=== PATIENT | male | born 1975 | race Two or more races ===

== ENCOUNTER 2024-03-19 08:59 | Emergency (ER) | payer BC ==
[~2024-03-19] VITALS: Ht 162.6 cm; Wt 76.3 kg
[2024-03-19 10:38] LABS: Urine Bacteria None Seen /hpf (None Seen)
[2024-03-19 10:39] LABS: Basophils # (auto) 0.1 10 ^3/uL (0-0.2); Basophils % (auto) 0.7 % (0.0-2.0); Eosinophils # (auto) 0.9 10 ^3/uL (0-0.8); Eosinophils % (auto) 8.7 % (0.0-7.0); Hematocrit 48.3 % (41.0-53.0); Hemoglobin 16.5 g/dL (13.5-17.5); Lymphocytes # (auto) 1.5 10 ^3/uL (0.4-5.4); Lymphocytes % (auto) 15.1 % (10.0-50.0); Mean Corpuscular Hgb Conc. 34.2 g/dL (32.0-36.0); Mean Corpuscular Volume 90.8 fL (80.0-100.0); Monocytes % (auto) 9.5 % (0.0-12.0); Neutrophils # (auto) 6.6 10 ^3/uL (1.6-8.6); Nucleated Red Blood Cells % 0.1 %; Platelet Count (auto) 321 10^3/uL (140-450); Red Blood Cells 5.32 10^6/uL (4.5-5.90); White Blood Cell 10.1 10^3/uL (4.4-10.8)
--- NOTE | 2024-03-19 10:56 | ED.PDOC ---
History of Present Illness HPI Comments 48M presents to the ER w/ no prior Hx associated to the c/c of urinary problems. Pt reports on having a "bladder problem" and has a burning sensation and pain for the past 2 days during urination. Pt notes of also having lower ABD pain and that this is the first time of these symptoms. Social Hx of occasional alcohol use, but denies tobacco and substance use. Denies chills, fever, N/V/D, SOB, Back pain, CP or other associated symptoms, modifiers or recent injuries or sick contact at this time. Chief Complaint: Urinary Time Seen by MD: 09:35 Primary Care Provider: none Reviewed Notes: Nurses Notes, Medications, Allergies Allergies: Coded Allergies: NO KNOWN ALLERGIES (Unverified , 03/19/24) Home Meds Active Scripts Tamsulosin Hcl (Flomax) 0.4 Mg Cap, 1 CAP PO DAILY, #90 CAP 3 Refills Prov:ARUN FRANCE MD 03/19/24 Information Source: Patient Mode of Arrival: Ambulatory Severity: Moderate Timing: Days Duration: Since onset, Days Prehospital treatment: None Past Medical History PAST MEDICAL HISTORY: Denies Surgical History: Denies all surgeries Family History Family History: Reviewed,noncontributory to illness, Unknown Social History Smoker: Non-Smoker Alcohol: Occasionally Drugs: Denies Drug Use Lives In: Home Constitutional: denies: chills, diaphoresis, fatigue, fever, malaise, sweats, weakness, others EENTM: denies: blurred vision, double vision, ear bleeding, ear discharge, ear drainage, ear pain, ear ringing, eye pain, eye redness, hearing loss, mouth pain, mouth swelling, nasal discharge, nose bleeding, nose congestion, nose pain, photophobia, tearing, throat pain, throat swelling, voice changes, others Respiratory: denies: cough, hemoptysis, orthopnea, SOB at rest, shortness of breath, SOB with excertion, stridor, wheezing, others Cardiovascular: denies: chest pain, dizzy spells, diaphoresis, Dyspnea on exertion, edema, irregular heart beat, left arm pain, lightheadedness, palpitations, PND, syncope, others Gastrointestinal: reports: abdominal pain; denies: abdomen distended, blood streaked bowels, constipated, diarrhea, dysphagia, difficulty swallowing, hematemesis, melena, nausea, poor appetite, poor fluid intake, rectal bleeding, rectal pain, vomiting, others Genitourinary: reports: burning; denies: dysuria, flank pain, frequency, hematuria, incontinence, penile discharge, penile sore, pain, testicle pain, te sticle swelling, urgency, others Neurological: denies: dizziness, fainting, headache, left sided numbness, left sided weakness, numbness, paresthesia, pre-existing deficit, right sided numbness, right sided weakness, seizure, speech problems, tingling, tremors, weakness, others Musculoskeletal: denies: back pain, gout, joint pain, joint swelling, muscle pain, muscle stiffness, neck pain, others Integumetry: denies: bruises, change in color, change in hair/nails, dryness, laceration, lesions, lumps, rash, wounds, others Allergic/Immunocompromised: denies: Difficulty Healing, Frequent Infections, Hives, Itching, others Hematologic/Lymphatic: denies: anemia, blood clots, easy bleeding, easy bruising, swollen glands, others Endocrine: denies: excessive hunger, excessive sweating, excessive thirst, excessive urination, flushing, intolerance to cold, intolerance to heat, unexplained weight gain, unexplained weight loss, others Psychiatric: denies: anxiety, bipolar disorder, depression, hopeless, panic disorder, schizophrenia, sleepless, suicidal, others All Other Systems: Reviewed and Negative Physical Exam Exam Comments Lower ABD pain General Appearance: No Apparent Distress, Normal HEENT: Normal ENT Inspection, Pharynx Normal, TMs Normal Neck: Full Range of Motion, Non-Tender, Normal, Normal Inspection Respiratory: Chest Non-Tender, Lungs Clear, No Accessory Muscle Use, No Respiratory Distress, Normal Breath Sounds Cardiovascular: No Edema, No JVD, No Murmur, No Gallop, Normal Peripheral Pulses, Regular Rate/Rhythm Breast Exam: Deferred Gastrointestinal: No Organomegaly, No Pulsatile Mass, Normal Bowel Sounds, Soft, Tenderness (Lower ABD pain) Genitalia: Deferred Pelvic: Deferred Rectal: Deferred Extremities: No calf tenderness, Normal capillary refill, Normal inspection, Normal range of motion, Non-tender, No pedal edema Musculoskeletal : Apperance: Normal Neurologic: Alert, acls nurse II-XII 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 Was a procedure done?: No Differential Dx Considerations may include: UTI, pyelo, nephrolithiasis, obstructive uropathy, urinary retention, epididymitis, BPH, prostate cancer X-Ray, Labs, Meds, VS Vital Signs Date Time Temp Pulse Resp B/P (MAP) Pulse Ox O2 Delivery O2 Flow Rate FiO2 03/19/24 13:36 98.2 78 16 139/92 (108) 96 98.2 03/19/24 12:06 74 18 96 Room Air 03/19/24 12:06 98.1 74 18 143/91 (108) 96 98.1 03/19/24 09:08 97.9 64 17 150/90 (110) 98 Lab Test 03/19/24 10:04 03/19/24 09:57 Range/Units White Blood Count 10.1 4.4-10.8 10^3/uL Red Blood Count 5.32 4.5-5.90 10^6/uL Hemoglobin 16.5 13.5-17.5 g/dL Hematocrit 48.3 41.0-53.0 % Mean Corpuscular Volume 90.8 80.0-100.0 fL Mean Corpuscular Hemoglobin 31.0 28.0-32.0 pg Mean Corpuscular Hemoglobin Concent 34.2 32.0-36.0 g/dL Red Cell Distribution Width 14.0 11.8-14.3 % Platelet Count 321 140-450 10^3/uL Mean Platelet Volume 8.2 6.9-10.8 fL Neutrophils (%) (Auto) 66.0 37.0-80.0 % Lymphocytes (%) (Auto) 15.1 10.0-50.0 % Monocytes (%) (Auto) 9.5 0.0-12.0 % Eosinophils (%) (Auto) 8.7 H 0.0-7.0 % Basophils (%) (Auto) 0.7 0.0-2.0 % Neutrophils # (Auto) 6.6 1.6-8.6 10 ^3/uL Lymphocytes # (Auto) 1.5 0.4-5.4 10 ^3/uL Monocytes # (Auto) 1.0 0-1.3 10 ^3/uL Eosinophils # (Auto) 0.9 H 0-0.8 10 ^3/uL Basophils # (Auto) 0.1 0-0.2 10 ^3/uL Nucleated Red Blood Cells 0.1 % Sodium Level 140 136-145 mmol/L Potassium Level 3.8 3.5-5.1 mmol/L Chloride Level 105 98-107 mmol/L Carbon Dioxide Level 29 20-31 mmol/L Anion Gap 6 5-15 Blood Urea Nitrogen 14 9-23 mg/dL Creatinine 0.97 0.700-1.30 mg/dL Glomerular Filtration Rate Calc 97 >90 mL/min BUN/Creatinine Ratio 14.4 10.0-20.0 Serum Glucose 92 74-106 mg/dL Calcium Level 10.3 8.7-10.4 mg/dL Urine Color Light-yellow Yellow Urine Clarity Clear Clear Urine pH 5.0 5.0-9.0 Urine Specific [place] 1.015 1.001-1.035 Urine Protein Negative Negative Urine Ketones Negative Negative Urine Blood Trace H Negative /uL Urine Nitrite Negative Negative Urine Bilirubin Negative Negative Urine Urobilinogen Normal Negative mg/dL Urine Leukocyte Esterase Negative Negative /uL Urine RBC 2 0 - 3 /hpf Urine WBC 1 0 - 3 /hpf Urine Squamous Epithelial Cells Few <5 /hpf Urine Bacteria None seen None Seen /hpf Urine Mucus Few None Seen Urine Glucose Normal Normal mg/dL Current Medications Medications (Trade) Dose Ordered Sig/Holly Route Start Time Stop Time Status Last Admin Tamsulosin HCl (Flomax) 0.4 mg ONCE ONCE PO 03/19/24 13:00 03/19/24 13:10 DC 03/19/24 13:19 Time of 1ST Reevaluation: 10:05 Reevaluation 1ST: Unchanged Patient Education/Counseling: Diagnosis, Treatment, Prognosis Family Education/Counseling: No Family Present Departure 1 Departure Time of Disposition: 12:59 Impression: Primary Impression: BPH (benign prostatic hyperplasia) Additional Impressions: Obstructive uropathy Bilateral hydronephrosis Disposition: 01 HOME / SELF CARE / HOMELESS Condition: Stable Additional Instructions: Thank you for visiting our Emergency Room. I wish you full and complete recovery. Please follow the following instructions: 1. Take your medication bottles with you to EVERY DOCTOR'S VISIT (including your primary doctor). 2. Please follow up with your primary doctor in 2-3 days or sooner if symptoms do not improve. 3. Please read all the papers given to you at the time of the discharge so that you understand your condition better. 4. Please note that the emergency room visits are focused and not necessarily comprehensive. Therefore, it is possible that some occult medical conditions may go undiagnosed in the ER. 5. The emergency room visits are not and should not be thought of as replacement for regular visits with your primary doctor. 6. Therefore, it is absolutely critical that you follows up with your primary doctor on regular basis to make sure you receives a complete and comprehensive care. 7. I recommended the you take the hospital discharge papers to your primary care physician and other doctors' offices with you. 8. Go to your nearest emergency room if you think your condition gets worse or you think your condition is an emergency. e-Prescriptions Tamsulosin Hcl (Flomax) 0.4 Mg Cap 1 CAP PO DAILY, #90 CAP 3 Refills Prov: ARUN FRANCE MD 03/19/24 Discharged With: Self Critical Care Note Critical Care Time?: No Stability Stability form required: No I personally scribed for ARUN FRANCE MD ([email or web address]) on 03/19/24 at 10:56. Electronically submitted by Balwinder Donahue ([email or web address]). ARUN FRANCE MD Mar 19, 2024 10:56
[2024-03-19 10:58] LABS: Anion Gap 6 (5-15); Carbon Dioxide 29 mmol/L (20-31); Chloride 105 mmol/L (98-107); Potassium 3.8 mmol/L (3.5-5.1); Sodium 140 mmol/L (136-145)
[2024-03-19 10:59] LABS: Calcium 10.3 mg/dL (8.7-10.4)
[2024-03-19 11:03] LABS: Glucose 92 mg/dL (74-106)
[2024-03-19 11:04] LABS: BUN/Creatinine Ratio 14.4 (10.0-20.0); Blood Urea Nitrogen 14 mg/dL (9-23)
[2024-03-19 11:07] LABS: Urine Blood TRACE /uL (Negative); Urine Clarity Clear (Clear); Urine Color Light-Yellow (Yellow); Urine Mucus FEW (None Seen); Urine Protein, UAD Negative (Negative); Urine Specific Gravity 1.015 (1.001-1.035); Urine Squamous Epithelial Cell FEW /hpf (<5); Urine Urobilinogen Normal (Negative); Urine WBC 1 /hpf (0 - 3)
--- NOTE | 2024-03-19 12:39 | DVH ---
CLINICAL INFORMATION: 48 years old, Male; hematuria. TECHNIQUE: Axial CT images of the abdomen and pelvis were obtained without IV contrast. Coronal and sagittal reformatted images were obtained, reviewed, and stored. Evaluation of the parenchymal organs is limited without IV contrast. Evaluation of the bowel and mesentery is limited without oral contra st. All CT scans at this medical facility are performed using dose modulation techniques as appropria te to a performed exam including the following: Automated exposure control was utilized; adjustment o f the MA and/or KV according to patient size; and use of iterative reconstruction technique. CTDIvol = 10.92 mGy DLP = 582.86 mGy-cm COMPARISON: None FINDINGS: Lung bases: Lung bases are clear. Liver: Small cyst in the right hepatic lobe. Biliary: Gallbladder is distended. Mildly increased density in the gallbladder, may be due to sludge Spleen: Unremarkable. Pancreas: Grossly unremarkable in its noncontrast enhanced appearance. Adrenal glands: Unremarkable. No mass. Kidneys: Moderate bilateral hydronephrosis and hydroureter. No renal or ureteral calculi. No obstruct ing calculus visualized. Aorta/Vascular: Scattered atherosclerotic calcification. No abdominal aortic aneurysm. Retroperitoneum: No mass or lymphadenopathy. Bowel/mesentery: No small bowel obstruction. No free air or free fluid. Appendix is visualized and ap pears unremarkable. Scattered small colonic diverticula without adjacent inflammatory changes to sug gest diverticulitis. Pelvic organs: Markedly enlarged prostate with impression on the bladder base. Bladder: Bladder is moderately to markedly distended. Possible bladder outlet obstruction. Abdominal wall: No mass or hernia. Bones: No acute fracture or suspicious intraosseous lesion. IMPRESSION: 1. Moderate bilateral hydronephrosis and hydroureter with no renal or ureteral calculi. Likely second josh to bladder outlet obstruction from the markedly enlarged prostate. 2. Gallbladder is distended. Possible sludge in the gallbladder. Correlate with clinical findings. I f clinically indicated, ultrasound could be obtained to further evaluate. 3. Additional findings as detailed above.
[2024-03-19] MEDS ORDERED: TAMS-35 PO (13:00)
[2024-03-19] MEDS: TAMSULOSIN HYDROCHLORIDE 0.4 MG CAP PO ONE (13:19)
[2024-03-19 13:36] VITALS: BP 139/92; PULSE 78; RESP 16; TEMP 98.2; O2SAT 96
== END 2024-03-19 13:45 | disposition home or self-care (01) ==
LOC: ER 08:59
DX: N13.8 Other obstructive and reflux uropathy (principal); N40.1 Benign prostatic hyperplasia with lower urinary tract symptoms; N13.30 Unspecified hydronephrosis
CPT/HCPCS: 36415; 74176; 80048; 81001; 85025

== ENCOUNTER 2024-03-20 16:47 | Emergency (ER) | payer BC ==
[~2024-03-20] VITALS: Ht 162.6 cm; Wt 76.8 kg
[~2024-03-20 16:47] MED LIST: TAMS-35 PO
--- NOTE | 2024-03-20 18:53 | ED.PDOC ---
General HPI Comments 48 y.o male presents to the ED for a Solorzano Catheter placement s/p urinary retention x 3 days. Patient reports recently being diagnosed with BPH, prescribed Flomax, states he went to his PCP office today in which he had a bladder and kidney ultrasound done showing >700mL. Patinent is having suprapbuic discomfort rating a 5/10 on the pain scale. Patient was sent by Dr. Rucker for Solorzano catheter placement. Patient denies any nausea, vomiting, dysuria, h ematuria, fever, chills. Chief Complaint: Urinary Time Seen by MD: 18:37 Primary Care Provider: none Reviewed notes: Nurses Notes, Medications, Allergies Allergies: Coded Allergies: NO KNOWN ALLERGIES (Unverified , 03/19/24) Home Meds Active Scripts Tamsulosin Hcl (Flomax) 0.4 Mg Cap, 1 CAP PO DAILY, #90 CAP 3 Refills Prov:ARUN FRANCE MD 03/19/24 Information Source: Patient Mode of Arrival: Ambulatory Severity: Moderate Inability to void: None Timing: Days (3) Duration: Since onset Has not urinated for: Hours Onset: Spontaneous Symptoms: Inability to void History of: BPH Location: Suprapubic Penile discharge: None Modifying factors: None associated signs and symptoms: Abdominal Pain, Inability to Void Past Medical History Past Medical History (Other): BPH Surgical History: Denies all surgeries Family History Family History: Reviewed,noncontributory to illness, Unknown Social History Smoker: Non-Smoker Alcohol: Occasionally Drugs: Denies Drug Use Lives In: Home Constitutional: denies: chills, diaphoresis, fatigue, fever, malaise, sweats, weakness, others EENTM: denies: blurred vision, double vision, ear bleeding, ear discharge, ear drainage, ear pain, ear ringing, eye pain, eye redness, hearing loss, mouth pain, mouth swelling, nasal discharge, nose bleeding, nose congestion, nose pain, photophobia, tearing, throat pain, throat swelling, voice changes, others Respiratory: denies: cough, hemoptysis, orthopnea, SOB at rest, shortness of breath, SOB with excertion, stridor, wheezing, others Cardiovascular: denies: chest pain, dizzy spells, diaphoresis, Dyspnea on exertion, edema, irregular heart beat, left arm pain, lightheadedness, palpitations, PND, syncope, others Gastrointestinal: reports: abdominal pain; denies: abdomen distended, blood streaked bowels, constipated, diarrhea, dysphagia, difficulty swallowing, hematemesis, melena, nausea, poor appetite, poor fluid intake, rectal bleeding, rectal pain, vomiting, others Genitourinary: reports: others (ua retention ); denies: burning, dysuria, flank pain, frequency, hematuria, incontinence, penile discharge, penile sore, pain, testicle pain, testicle swelling, urgency Neurological: denies: dizziness, fainting, headache, left sided numbness, left sided weakness, numbness, paresthesia, pre-existing deficit, right sided numbness, right sided weakness, seizure, speech problems, tingling, tremors, weakness, others Musculoskeletal: denies: back pain, gout, joint pain, joint swelling, muscle pain, muscle stiffness, neck pain, others Integumetry: denies: bruises, change in color, change in hair/nails, dryness, laceration, lesions, lumps, rash, wounds, others Allergic/Immunocompromised: denies: Difficulty Healing, Frequent Infections, Hives, Itching, others Hematologic/Lymphatic: denies: anemia, blood clots, easy bleeding, easy bruising, swollen glands, others Endocrine: denies: excessive hunger, excessive sweating, excessive thirst, excessive urination, flushing, intolerance to cold, intolerance to heat, unexplained weight gain, unexplained weight loss, others Psychiatric: denies: anxiety, bipolar disorder, depression, hopeless, panic disorder, schizophrenia, sleepless, suicidal, others All Other Systems: Reviewed and Negative Physical Exam General Appearance: No Apparent Distress, Normal HEENT: Normal ENT Inspection, Pharynx Normal, TMs Normal Neck: Full Range of Motion, Non-Tender, Normal, Normal Inspection Respiratory: Chest Non-Tender, Lungs Clear, No Accessory Muscle Use, No Respiratory Distress, Normal Breath Sounds Cardiovascular: No Edema, No JVD, No Murmur, No Gallop, Normal Peripheral Pulses, Regular Rate/Rhythm Breast Exam: Deferred Gastrointestinal: Suprapubic, Tenderness Genitalia: Deferred Pelvic: Deferred Rectal: Deferred Extremities: No calf tenderness, Normal capillary refill, Normal inspection, Normal range of motion, Non-tender, No pedal edema Musculoskeletal : Apperance: Normal Neurologic: Alert, roll sheeting cutter II-XII 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 Was a procedure done?: No Differential Diagnosis Kidney stone (Female): N/A Penile/Scrotal: Prostatitis, Urinary Retention Urinary Problem (Male): Bladder Outlet, Bladder Obstruction, Renal Failure, Urinary Retention, Urolithiasis, UTI X-Ray, Labs, Meds, VS Vital Signs Date Time Temp Pulse Resp B/P (MAP) Pulse Ox O2 Delivery O2 Flow Rate FiO2 03/20/24 17:10 98.3 73 17 160/98 (118) 95 Lab Test 03/20/24 17:15 Range/Units Urine Color Pending Urine Clarity Pending Urine pH Pending Urine Specific [place] Pending Urine Protein Pending Urine Ketones Pending Urine Blood Pending Urine Nitrite Pending Urine Bilirubin Pending Urine Urobilinogen Pending Urine Leukocyte Esterase Pending Urine RBC Pending Urine WBC Pending Urine Squamous Epithelial Cells Pending Urine Bacteria Pending Urine Glucose Pending X-Ray, Labs, Meds, VS Comment Imaging: X-rays and CT scans were reviewed and interpreted by this provider, imaging shows no fractures and no pathological disease. Pending radiology review. Laboratory: Labs reviewed and interpreted by this provider. No significant abnormalities noted. Patient has prior medical visits reviewed. Med reconciliation performed Vital signs reviewed Time of 1ST Reevaluation: 18:53 Reevaluation 1ST: Improved Patient Education/Counseling: Diagnosis, Treatment, Prognosis, Need For Follow Up (Follow up with urology next available appointment) Family Education/Counseling: No Family Present Departure 1 Departure Time of Disposition: 20:49 Impression: Primary Impression: BPH (benign prostatic hyperplasia) Disposition: HOME / SELF CARE / HOMELESS Condition: Fair Discharged With: Self Critical Care Note Critical Care Time?: No Stability Stability form required: No I personally scribed for CARMEN ARTHUR ([facility]) on 03/20/24 at 18:53. Electronically submitted by Sania Bernstein ([facility]). CARMEN ARTHUR Mar 20, 2024 18:53
[2024-03-20 20:39] LABS: Urine Bacteria None Seen /hpf (None Seen)
[2024-03-20 20:48] LABS: Urine Blood TRACE /uL (Negative); Urine Clarity Clear (Clear); Urine Color Yellow (Yellow); Urine Mucus FEW (None Seen); Urine Protein, UAD Negative (Negative); Urine Specific Gravity 1.018 (1.001-1.035); Urine Squamous Epithelial Cell None Seen /hpf (<5); Urine Urobilinogen Normal (Negative); Urine WBC 8 /hpf (0 - 3); Urine pH 5.5 (5.0-9.0)
[2024-03-20 21:40] VITALS: BP 138/83; PULSE 60; RESP 18; TEMP 97.9; O2SAT 99
== END 2024-03-20 22:06 | disposition home or self-care (01) ==
LOC: ER 16:48
DX: N40.0 Benign prostatic hyperplasia without lower urinary tract symptoms (principal)
CPT/HCPCS: 51702; 81001

== ENCOUNTER → 2024-03-23 | Outpatient (CLI) | payer BC ==
[2024-03-24 08:06] LABS: PSA Free 0.79 ng/mL; Prostate Specific Antigen 4.4 ng/mL (0.0-4.0)
== END | disposition home or self-care (01) ==
LOC: LAB 09:29
PROVIDERS: ATTEND Urology
DX: N40.1 Benign prostatic hyperplasia with lower urinary tract symptoms (principal)
CPT/HCPCS: 84153; 84154

== ENCOUNTER 2024-04-13 23:35 | Emergency (ER) | payer BC ==
[~2024-04-13] VITALS: Ht 165.1 cm; Wt 76.4 kg
[2024-04-14 01:23] LABS: Basophils # (auto) 0.1 10 ^3/uL (0-0.2); Basophils % (auto) 0.7 % (0.0-2.0); Eosinophils # (auto) 0.4 10 ^3/uL (0-0.8); Eosinophils % (auto) 3.3 % (0.0-7.0); Hematocrit 49.4 % (41.0-53.0); Hemoglobin 16.9 g/dL (13.5-17.5); Lymphocytes # (auto) 2.2 10 ^3/uL (0.4-5.4); Lymphocytes % (auto) 19.8 % (10.0-50.0); Mean Corpuscular Hemoglobin 30.9 pg (28.0-32.0); Mean Corpuscular Hgb Conc. 34.2 g/dL (32.0-36.0); Mean Corpuscular Volume 90.3 fL (80.0-100.0); Monocytes # (auto) 0.6 10 ^3/uL (0-1.3); Monocytes % (auto) 5.6 % (0.0-12.0); Neutrophils # (auto) 7.8 10 ^3/uL (1.6-8.6); Neutrophils % (auto) 70.6 % (37.0-80.0); Nucleated Red Blood Cells % 0.1 %; Platelet Count (auto) 336 10^3/uL (140-450); Red Blood Cells 5.48 10^6/uL (4.5-5.90); Red Cell Distribution Width 13.7 % (11.8-14.3)
--- NOTE | 2024-04-14 01:23 | ED.PDOC ---
General HPI Comments HPI: Poor Historian. 49-year-old male presents to emergency department for recurrent acute urinary retention. Patient had urinary retention on March 23 and had a Solorzano catheter placed at that time in the ED. patient is saw his urologist and got his Solorzano catheter removed earlier today.. Patient went home and started exp eriencing urinary retention again and he states that it is getting worse as far as it discomfort. Denies any other acute symptoms. Past Medical History: Denies any Past Surgical History: Denies any REVIEW OF SYSTEMS: CONSTITUTIONAL: Denies acute: fever, diaphoresis, chills, generalized weakness. HEAD: Denies acute: headache, photophobia Eyes: Denies acute: Double vision, vision loss, eye pain, eye discharge. EARS: Denies acute: tinnitus, hearing loss, ear discharge, ear pain, THROAT: Denies acute: sore throat, swelling, difficulty swallowing , pain with swallowing, change in voice. NECK: Denies acute: neck pain, neck swelling, stiff neck. HEART: Denies acute : chest pain, palpitations, LUNGS: Denies acute: SOB, wheezing, cough, hemoptysis ABDOMEN: Denies acute: Nausea, Vomiting, diarrhea, melena , hematemesis, hematochezia SKIN: Denies acute: rash, redness, lesions, itchiness. EXTREMITIES: Denies acute: calf pain, numbness, tingling, weakness, denies pain in extremity. Denies acute: Low back pain. Neuro: Denies acute: focal neurological deficit, motor or sensory focal neurological deficit, tremors, seizure like activity, confusion, dizziness, change in mental status, loss of bowel or bladder function, cauda equina like symptoms. : Denies acute: dysuria, hematuria, flank pain, increase in urinary frequency. PSYCH: Denies acute: hallucination, suicidal ideation, homicidal ideation. PHYSICAL EXAM: General: no acute distress, awake and alert. Head: normocephalic, atraumatic. Neck: supple, trachea is midline, no swelling. Throat: Normal phonation. Eyes:, no erythema, no purulent discharge, no proptosis, no icterus. Heart: regular rate, regular rhythm, no significant murmur appreciated. Lungs: no apparent respiratory distress, Able to speak in full sentences. No wheezing, no rhonchi, no crackles. No stridors Clear to auscultation bilaterally. Abdomen: Mild suprapubic tender to palpation, non distended, soft, no guarding, no rebound, + bowel sounds. Neuro: Awake, Alert, oriented to name, self, situation, follows commands GCS=15. Speech is normal. Skin: no petechia, no purpura, no cyanosis, non-pale, not jaundice. Lower extremities: --no - Pitting edema no deformity, no focal swelling, no calf TTP. Makes eye contact. moves all four extremities. Face: no apparent facial droop. Ambulating in the ED independently. ED COURSE: Chief Complaint: Urinary Time Seen by MD: 00:56 Primary Care Provider: none Reviewed notes: Nurses Notes, Allergies Allergies: Coded Allergies: NO KNOWN ALLERGIES (Unverified , 03/19/24) Home Meds Active Scripts Cephalexin Monohydrate (Cephalexin) 500 Mg Tab, 1 TAB PO QID for 7 Days, #28 TAB Prov:PABLITO HOOPER DO 04/14/24 Tamsulosin Hcl (Flomax) 0.4 Mg Cap, 1 CAP PO DAILY, #90 CAP 3 Refills Prov:ARUN FRANCE MD 03/19/24 Information Source: Patient Mode of Arrival: Ambulatory Past Medical History Surgical History: Denies all surgeries Family History Family History: Reviewed,noncontributory to illness, Unknown Social History Smoker: Non-Smoker Alcohol: Occasionally Drugs: Denies Drug Use Lives In: Home Was a procedure done? Was a procedure done?: No Differential Diagnosis Kidney stone (Female): N/A Urinary Problem (Male): Bladder Outlet, Bladder Obstruction, Epididymitis, Prostatitis, Plelonephritis, Post op Complications, Renal Failure, Urethritis, Urinary Retention, Urolithiasis, UTI, Other (MALE URINARY PROBLEMSDDX BPH, OBSTRUCTING NEOPLASM, BLADDER PATHOLOGY, OBSTRUCTION STONE. PHYMOSIS/PAPRPHYMOSIS, CAUDA EQUINA SYNDROME, UTI.) X-Ray, Labs, Meds, VS Vital Signs Date Time Temp Pulse Resp B/P (MAP) Pulse Ox O2 Delivery O2 Flow Rate FiO2 04/14/24 00:00 98.5 78 16 163/95 (117) 94 Lab Test 04/14/24 01:12 04/14/24 00:44 Range/Units White Blood Count 11.0 H 4.4-10.8 10^3/uL Red Blood Count 5.48 4.5-5.90 10^6/uL Hemoglobin 16.9 13.5-17.5 g/dL Hematocrit 49.4 41.0-53.0 % Mean Corpuscular Volume 90.3 80.0-100.0 fL Mean Corpuscular Hemoglobin 30.9 28.0-32.0 pg Mean Corpuscular Hemoglobin Concent 34.2 32.0-36.0 g/dL Red Cell Distribution Width 13.7 11.8-14.3 % Platelet Count 336 140-450 10^3/uL Mean Platelet Volume 7.9 6.9-10.8 fL Neutrophils (%) (Auto) 70.6 37.0-80.0 % Lymphocytes (%) (Auto) 19.8 10.0-50.0 % Monocytes (%) (Auto) 5.6 0.0-12.0 % Eosinophils (%) (Auto) 3.3 0.0-7.0 % Basophils (%) (Auto) 0.7 0.0-2.0 % Neutrophils # (Auto) 7.8 1.6-8.6 10 ^3/uL Lymphocytes # (Auto) 2.2 0.4-5.4 10 ^3/uL Monocytes # (Auto) 0.6 0-1.3 10 ^3/uL Eosinophils # (Auto) 0.4 0-0.8 10 ^3/uL Basophils # (Auto) 0.1 0-0.2 10 ^3/uL Nucleated Red Blood Cells 0.1 % Sodium Level 140 136-145 mmol/L Potassium Level 4.5 3.5-5.1 mmol/L Chloride Level 105 98-107 mmol/L Carbon Dioxide Level 28 20-31 mmol/L Anion Gap 7 5-15 Blood Urea Nitrogen 10 9-23 mg/dL Creatinine 0.85 0.700-1.30 mg/dL Glomerular Filtration Rate Calc 107 >90 mL/min BUN/Creatinine Ratio 11.8 10.0-20.0 Serum Glucose 105 74-106 mg/dL Calcium Level 10.2 8.7-10.4 mg/dL Total Bilirubin 0.4 0.2-1.0 mg/dL Aspartate Amino Transferase (AST) 41 H 13-40 U/L Alanine Aminotransferase (ALT) 127 H 7-40 U/L Alkaline Phosphatase 159 H 46-116 U/L Total Protein 7.8 5.7-8.2 g/dL Albumin 4.8 3.2-4.8 g/dL Urine Color Light-yellow Yellow Urine Clarity Clear Clear Urine pH 6.0 5.0-9.0 Urine Specific [place] 1.019 1.001-1.035 Urine Protein Trace H Negative Urine Ketones Negative Negative Urine Blood 2+ H Negative /uL Urine Nitrite 2+ H Negative Urine Bilirubin Negative Negative Urine Urobilinogen Normal Negative mg/dL Urine Leukocyte Esterase 3+ Negative /uL Urine RBC 34 0 - 3 /hpf Urine Microscopic WBC 60 H 0-3 /HPF Urine Squamous Epithelial Cells None seen <5 /hpf Urine Bacteria Few H None Seen /hpf Urine Glucose Normal Normal mg/dL Current Medications Medications (Trade) Dose Ordered Sig/Holly Route Start Time Stop Time Status Last Admin Lidocaine HCl (Lidocaine HCl Jelly) 5 ml ONCE ONCE TOP 04/14/24 01:00 04/14/24 01:02 DC 04/14/24 01:30 Time of 1ST Reevaluation: 02:50 Reevaluation 1ST: Resolved Patient Education/Counseling: Diagnosis, Treatment Family Education/Counseling: Other Comments Patient presented with the above HPI.---acute urinary retention---workup was initiated. patient was found with the above mentioned diagnosis. the following medications were ordered: please refer to order lists of meds and tests obtained by myself Dr. Hooper. Patient ED course and VS have been stabilized. Patient has been reassessed in the ED and remained in a stable condition. Pertinent incidental findings were discussed with the patient and/or family. Patient/family voices understanding and is agreeable with plan. Patient has been observed in the ED adequate length of time to insure improvement/stability. Escalation of care considered: Consideration of escalation to observation or admission Labs were obtained and urinalysis which shows UTI. Patient was given IV antibiotics. Solorzano catheter was placed and at least 500 cc of urine were removed. Patient will go home with a leg bag. Patient has a urologist established already. Patient was DISCHARGED home in a stable condition. All the reports of any imaging studies that were ordered by myself were reviewed by myself. Departure 1 Departure Time of Disposition: 02:49 Impression: Primary Impression: Acute urinary retention Additional Impressions: UTI (urinary tract infection) Solorzano catheter in place Disposition: HOME / SELF CARE / HOMELESS Condition: Stable Additional Instructions: Additional discharge instructions: You MUST follow-up with your primary care/family doctor in 1 to 2 days. If you are unable to see your primary care/family doctor, please return to our emergency room for re-assessment and re-evaluation in 1 to 2 days. Return to the emergency room here in our facility or to the nearest ER [facility] if your symptoms change or worsen. CONSULTATIONS: you MUST Follow-up for consultation as soon as possible with: urologrob in 1-2 days. Please call for appointment. You MUST call the consultants office yourself to make an appointment. You may need to arrange that through your insurance and/or your primary/family doctor. If you are unable to see the clinical documentation consultant in 1 to 2 days, you must return to our emergency room (or any other ER of your choice) for re-assessment and re- evaluation. Adequate fluid hydration. e-Prescriptions Cephalexin Monohydrate (Cephalexin) 500 Mg Tab 1 TAB PO QID for 7 Days, #28 TAB Prov: PABLITO HOOPER DO 04/14/24 Discharged With: Self Critical Care Note Critical Care Time?: No PABLITO HOOPER DO Apr 14, 2024 01:23
[2024-04-14] MEDS: LIDOCAINE HCL 2% TOP JELLY 5ML TOP ONE (01:26)
[2024-04-14] MEDS: LIDOCAINE 2% TOPICAL JELLY 5 ML URJT TOP ONE (01:30)
[2024-04-14 01:41] LABS: Anion Gap 7 (5-15); BUN/Creatinine Ratio 11.8 (10.0-20.0); Blood Urea Nitrogen 10 mg/dL (9-23); Calcium 10.2 mg/dL (8.7-10.4); Carbon Dioxide 28 mmol/L (20-31); Chloride 105 mmol/L (98-107); Glucose 105 mg/dL (74-106); Potassium 4.5 mmol/L (3.5-5.1); Sodium 140 mmol/L (136-145)
[2024-04-14 01:42] LABS: Bilirubin, Total 0.4 mg/dL (0.2-1.0); Total Protein 7.8 g/dL (5.7-8.2)
[2024-04-14 01:46] LABS: Alanine Aminotransferase 127 U/L (7-40); Alkaline Phosphatase 159 U/L (46-116); Aspartate Aminotransferase 41 U/L (13-40)
[2024-04-14 01:47] LABS: Albumin 4.8 g/dL (3.2-4.8)
[2024-04-14 01:56] LABS: Urine Bacteria FEW /hpf (None Seen); Urine Blood 2+ /uL (Negative); Urine Clarity Clear (Clear); Urine Color Light-Yellow (Yellow); Urine Protein, UAD TRACE (Negative); Urine Specific Gravity 1.019 (1.001-1.035); Urine Squamous Epithelial Cell None Seen /hpf (<5); Urine Urobilinogen Normal (Negative); Urine WBC 60 /HPF (0-3)
[2024-04-14] MEDS ORDERED: CEPH500T PO (02:51)
[2024-04-14 03:45] VITALS: BP 142/80; PULSE 78; RESP 20; TEMP 98.7; O2SAT 97
[2024-04-14] MEDS: cefTRIAXone 1GM/50ML D5W 50 ML IV ONE (04:00)
== END 2024-04-14 04:30 | disposition home or self-care (01) ==
LOC: ER 23:35
DX: N39.0 Urinary tract infection, site not specified (principal); R33.9 Retention of urine, unspecified
CPT/HCPCS: 36415; 51702; 80053; 81001; 85025; 96365; 99284; J0696

== ENCOUNTER 2024-04-16 18:32 | Emergency (ER) | payer BC ==
[~2024-04-16] VITALS: Ht 165.1 cm; Wt 76.9 kg
[~2024-04-16 18:32] MED LIST changes: +CEPH500T PO
[2024-04-16 19:10] LABS: Urine Bacteria None Seen /hpf (None Seen)
[2024-04-16 19:16] LABS: Urine Blood 3+ /uL (Negative); Urine Clarity Ex.Turbid (Clear); Urine Color Red (Yellow); Urine Protein, UAD 1+ (Negative); Urine Specific Gravity 1.025 (1.001-1.035); Urine Squamous Epithelial Cell None Seen /hpf (<5); Urine Urobilinogen Normal (Negative); Urine WBC 626 /HPF (0-3); Urine WBC Clumps PRESENT /hpf (None Seen); Urine pH 5.5 (5.0-9.0)
[2024-04-16 20:43] VITALS: BP 146/97; PULSE 82; RESP 18; TEMP 98; O2SAT 97
--- NOTE | 2024-04-16 21:10 | ED.PDOC ---
General HPI Comments THIS IS A 49-YEAR-OLD MALE PRESENTS TO THE ED CHIEF COMPLAINT GROSS BLOOD IN URINE. PATIENT STATES SYMPTOMS HAVE BEEN GOING ON FOR 1 MONTH HOWEVER HE FOLLOW UP WITH HIS UROLOGIST AND WAS PRESCRIBED CIPRO 500 MG TWICE DAILY AND FLOMAX PROXIMALLY 2 DAYS AGO PATIENT STATES 3 DAYS AGO THE SYMPTOMS FOR WORSE URINE WAS RED NOW HE STATES SOME IMPROVEMENT URINE IS BROWN. HE HAS BEEN ON CIPRO X2 DAYS WITH IMPROVING. DENIES FEVER, CHILLS, NAUSEA, VOMITING, BURNING WITH URINATION, CHEST PAIN OR SHORTNESS BREATH Chief Complaint: Urinary Time Seen by MD: 18:59 Primary Care Provider: none Reviewed notes: Nurses Notes, Medications, Allergies Allergies: Coded Allergies: NO KNOWN ALLERGIES (Unverified , 03/19/24) Home Meds Active Scripts Cephalexin Monohydrate (Cephalexin) 500 Mg Tab, 1 TAB PO QID for 7 Days, #28 TAB Prov:PABLITO LAUREANO DO 04/14/24 Tamsulosin Hcl (Flomax) 0.4 Mg Cap, 1 CAP PO DAILY, #90 CAP 3 Refills Prov:ARUN FRANCE MD 03/19/24 Information Source: Patient Mode of Arrival: Ambulatory Past Medical History PAST MEDICAL HISTORY: Denies Surgical History: Denies all surgeries Family History Family History: Reviewed,noncontributory to illness, Unknown Social History Smoker: Non-Smoker Alcohol: Occasionally Drugs: Denies Drug Use Lives In: Home Constitutional: denies: chills, diaphoresis, fatigue, fever, malaise, sweats, weakness, others EENTM: denies: blurred vision, double vision, ear bleeding, ear discharge, ear drainage, ear pain, ear ringing, eye pain, eye redness, hearing loss, mouth pain, mouth swelling, nasal discharge, nose bleeding, nose congestion, nose pain, photophobia, tearing, throat pain, throat swelling, voice changes, others Respiratory: denies: cough, hemoptysis, orthopnea, SOB at rest, shortness of breath, SOB with excertion, stridor, wheezing, others Cardiovascular: denies: chest pain, dizzy spells, diaphoresis, Dyspnea on exer tion, edema, irregular heart beat, left arm pain, lightheadedness, palpitations, PND, syncope, others Gastrointestinal: denies: abdomen distended, abdominal pain, blood streaked bowels, constipated, diarrhea, dysphagia, difficulty swallowing, hematemesis, melena, nausea, poor appetite, poor fluid intake, rectal bleeding, rectal pain, vomiting, others Genitourinary: reports: hematuria; denies: burning, dysuria, flank pain, frequency, incontinence, penile discharge, penile sore, pain, testicle pain, testicle swelling, urgency, others Neurological: denies: dizziness, fainting, headache, left sided numbness, left sided weakness, numbness, paresthesia, pre-existing deficit, right sided numbness, right sided weakness, seizure, speech problems, tingling, tremors, weakness, others Musculoskeletal: denies: back pain, gout, joint pain, joint swelling, muscle pain, muscle stiffness, neck pain, others Integumetry: denies: bruises, change in color, change in hair/nails, dryness, laceration, lesions, lumps, rash, wounds, others Allergic/Immunocompromised: denies: Difficulty Healing, Frequent Infections, Hives, Itching, others Hematologic/Lymphatic: denies: anemia, blood clots, easy bleeding, easy bruising, swollen glands, others Endocrine: denies: excessive hunger, excessive sweating, excessive thirst, excessive urination, flushing, intolerance to cold, intolerance to heat, unexplained weight gain, unexplained weight loss, others Psychiatric: denies: anxiety, bipolar disorder, depression, hopeless, panic disorder, schizophrenia, sleepless, suicidal, others Physical Exam General Appearance: No Apparent Distress, Normal HEENT: Normal ENT Inspection, Pharynx Normal, TMs Normal Neck: Full Range of Motion, Non-Tender Respiratory: Lungs Clear, No Respiratory Distress, Normal Breath Sounds Cardiovascular: No Edema, No JVD, No Murmur, No Gallop, Normal Peripheral Pulses, Regular Rate/Rhythm Breast Exam: Deferred Gastrointestinal: No Organomegaly, Non Tender, No Pulsatile Mass, Normal Bowel Sounds, Soft Genitalia: Other (PIKE BAG WITH BROWN COLORED URINE WITHOUT NOTED CLOTS SPLASHED TUBE CATHETER FLUSHED PATENT) Pelvic: Deferred Rectal: Deferred Extremities: No calf tenderness, Normal capillary refill, Normal inspection, Normal range of motion, Non-tender, No pedal edema Musculoskeletal : Apperance: Normal Neurologic: Alert, 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 Was a procedure done?: No Differential Diagnosis Kidney stone (Female): Urinary obstruction, Urolithiasis Kidney stone (Male): Pyelonephritis, Urolithiasis Urinary Problem (Male): Prostatitis, Urinary Retention, UTI X-Ray, Labs, Meds, VS Vital Signs Date Time Temp Pulse Resp B/P (MAP) Pulse Ox O2 Delivery O2 Flow Rate FiO2 04/16/24 20:43 82 18 97 Room Air 04/16/24 20:43 98.0 82 18 146/97 (113) 97 98.0 04/16/24 18:45 98.2 86 16 167/102 (123) 96 Lab Test 04/16/24 19:04 Range/Units Urine Color Red H Yellow Urine Clarity Ex.turbid Clear Urine pH 5.5 5.0-9.0 Urine Specific [place] 1.025 1.001-1.035 Urine Protein 1+ H Negative Urine Ketones Negative Negative Urine Blood 3+ H Negative /uL Urine Nitrite Negative Negative Urine Bilirubin Negative Negative Urine Urobilinogen Normal Negative mg/dL Urine Leukocyte Esterase 2+ Negative /uL Urine RBC 5588 0 - 3 /hpf Urine WBC Clumps Present None Seen /hpf Urine Microscopic WBC 626 H 0-3 /HPF Urine Squamous Epithelial Cells None seen <5 /hpf Urine Bacteria None seen None Seen /hpf Urine Glucose Normal Normal mg/dL X-Ray, Labs, Meds, VS Comment ADVISED PATIENT TO CONTINUE THE CIPRO IN THE FLOMAX PRESCRIBED PATIENT STATES HE HAS A APPOINTMENT WITH THE UROLOGIST TOMORROW ON WEDNESDAY. ER RETURN PRECAUTIONS GIVEN PATIENT INDICATES UNDERSTANDING AGREES WITH DISCHARGE PLAN OF CARE. Time of 1ST Reevaluation: 21:00 Reevaluation 1ST: Improved Patient Education/Counseling: Diagnosis, Treatment, Prognosis, Need For Follow Up Family Education/Counseling: No Family Present Departure 1 Departure Time of Disposition: 21:09 Impression: Primary Impression: Prostatitis, acute Additional Impressions: Hematuria Qualified Codes: R31.0 - Gross hematuria Pike catheter in place Disposition: HOME / SELF CARE / HOMELESS Condition: Stable Discharged With: Relative (Father) Critical Care Note Critical Care Time?: No Stability Stability form required: GIOVANY Loya Apr 16, 2024 21:10
== END 2024-04-16 21:23 | disposition home or self-care (01) ==
LOC: ER 18:32
DX: N41.0 Acute prostatitis (principal); R31.0 Gross hematuria
CPT/HCPCS: 81001

== ENCOUNTER → 2024-04-17 | Outpatient (CLI) | payer BC | END | disposition home or self-care (01) | LOC: LAB 12:32 | PROVIDERS: ATTEND Internal Medicine | DX: R31.9 Hematuria, unspecified (principal); N40.0 Benign prostatic hyperplasia without lower urinary tract symptoms | CPT/HCPCS: 87086 ==

== ENCOUNTER 2024-05-01 22:18 | Emergency (ER) | payer BC ==
[~2024-05-01] VITALS: Ht 165.1 cm; Wt 77.0 kg
--- NOTE | 2024-05-02 00:58 | ED.PDOC ---
General HPI Comments 49 YEAR OLD MALE PRESENTS TO ER WITH PIKE CATHETER COMPLAINT X1 DAY. PATIENT WITH PMH OF BPH REPORTS THAT HE HAD A PIKE CATHETER PLACED ON 04/19/23 AFTER HAVING A CYSTOSCOPY PROCEDURE BY HIS UROLOGIST DR. TUBBS AND STATES X1 DAY HAS BEEN EXPERIENCING LEAKAGE AND 4/1O BURNING PAIN AT PIKE CATHETER INSERTION SITE. PRESENTS TO ER AMBULATORY ON ARRIVAL, WITH STEADY GAIT, IN NO DISTRESS AND STATES HE WAS FOLLOWING UP WITH DR. TUBBS IN TWO DAYS. DENIES FEVER, BODY ACHES, CHILLS, NAUSEA/VOMITING, ABDOMINAL/PELVIC PAIN, SKIN CHANGES, HEMATURIA/FURTHER CHANGES IN URINATION OR ANY FURTHER SYMPTOMS/COMPLAINTS Chief Complaint: Penile Problem Time Seen by MD: 23:05 Primary Care Provider: UNKNOWN Reviewed notes: Nurses Notes, Medications, Allergies Allergies: Coded Allergies: NO KNOWN ALLERGIES (Unverified , 03/19/24) Home Meds Active Scripts Cephalexin Monohydrate (Cephalexin) 500 Mg Tab, 1 TAB PO QID for 7 Days, #28 TAB Prov:PABLITO LAUREANO DO 04/14/24 Tamsulosin Hcl (Flomax) 0.4 Mg Cap, 1 CAP PO DAILY, #90 CAP 3 Refills Prov:ARUN FRANCE MD 03/19/24 Information Source: Patient Mode of Arrival: Ambulatory Past Medical History Past Medical History (Other): BPH Surgical History (Other): CYSTOSCOPY-04/19/2024 Family History Family History: Unknown Social History Smoker: Non-Smoker Alcohol: Occasionally Drugs: Denies Drug Use Lives In: Home Constitutional: denies: chills, diaphoresis, fatigue, fever, malaise, sweats, weakness, others EENTM: denies: blurred vision, double vision, ear bleeding, ear discharge, ear drainage, ear pain, ear ringing, eye pain, eye redness, hearing loss, mouth pain, mouth swelling, nasal discharge, nose bleeding, nose congestion, nose pain, photophobia, tearing, throat pain, throat swelling, voice changes, others Respiratory: denies: cough, hemoptysis, orthopnea, SOB at rest, shortness of breath, SOB with excertion, stridor, wheezing, others Cardiovascular: denies: chest pain, dizzy spells, diaphoresis, Dyspnea on exertion, edema, irregular heart beat, left arm pain, lightheadedness, palpitations, PND, syncope, others Gastrointestinal: denies: abdomen distended, abdominal pain, blood streaked bowels, constipated, diarrhea, dysphagia, difficulty swallowing, hematemesis, melena, nausea, poor appetite, poor fluid intake, rectal bleeding, rectal pain, vomiting, others Genitourinary: reports: others ( STATED IN HPI) Neurological: denies: dizziness, fainting, headache, left sided numbness, left sided weakness, numbness, paresthesia, pre-existing deficit, right sided numbness, right sided weakness, seizure, speech problems, tingling, tremors, weakness, others Musculoskeletal: denies: back pain, gout, joint pain, joint swelling, muscle pain, muscle stiffness, neck pain, others Integumetry: denies: bruises, change in color, change in hair/nails, dryness, laceration, lesions, lumps, rash, wounds, others Allergic/Immunocompromised: denies: Difficulty Healing, Frequent Infections, Hives, Itching, others Hematologic/Lymphatic: denies: anemia, blood clots, easy bleeding, easy bruising, swollen glands, others Endocrine: denies: excessive hunger, excessive sweating, excessive thirst, excessive urination, flushing, intolerance to cold, intolerance to heat, unex plained weight gain, unexplained weight loss, others Psychiatric: denies: anxiety, bipolar disorder, depression, hopeless, panic disorder, schizophrenia, sleepless, suicidal, others Physical Exam General Appearance: No Apparent Distress HEENT: PERRL/EOMI Neck: Full Range of Motion, Non-Tender, Normal Respiratory: Chest Non-Tender, Lungs Clear, No Accessory Muscle Use, No Respiratory Distress, Normal Breath Sounds Cardiovascular: No Murmur, No Gallop, Regular Rate/Rhythm Breast Exam: Deferred Gastrointestinal: NOT DONE Genitalia: Other (PIKE CATHETER IN PLACE. NO LEAKAGE APPRECIATED. NO SKIN CHANGES NOTED. YELLOW URINE NOTED WITHOUT ANY HEMATURIA APPRECIATED) Pelvic: Deferred Rectal: Deferred Extremities: Normal capillary refill, Normal range of motion Neurologic: Alert, No Motor Deficits, Normal Affect, Normal Mood, No Sensory Deficits Cerebellar Function: Normal Reflexes: Normal Skin: Dry, Normal Color, Warm Peripheral Pulses: 2+ Radial (R), 2+ Radial (L), 2+ Brachial (R), 2+ Brachial (L) Lymphatic: No Adenopathy Was a procedure done? Was a procedure done?: No Sedation Sedation?: No Differential Diagnosis Kidney stone (Female): N/A Penile/Scrotal: Prostatitis, UTI, Urinary Retention X-Ray, Labs, Meds, VS Vital Signs Date Time Temp Pulse Resp B/P (MAP) Pulse Ox O2 Delivery O2 Flow Rate FiO2 05/01/24 22:35 98.1 85 14 145/96 (112) 95 Lab Test 05/02/24 00:35 Range/Units Urine Color Colorless Yellow Urine Clarity Turbid H Clear Urine pH 6.5 5.0-9.0 Urine Specific [place] 1.031 1.001-1.035 Urine Protein 1+ H Negative Urine Ketones Negative Negative Urine Blood 3+ H Negative /uL Urine Nitrite 2+ H Negative Urine Bilirubin Negative Negative Urine Urobilinogen Normal Negative mg/dL Urine Leukocyte Esterase 3+ Negative /uL Urine RBC 353 0 - 3 /hpf Urine Microscopic WBC 419 H 0-3 /HPF Urine Squamous Epithelial Cells None seen <5 /hpf Urine Bacteria None seen None Seen /hpf Urine Mucus Few None Seen Urine Glucose Normal Normal mg/dL Urinalysis reviewed-urine leukocyte esterase 3+, urine nitrites 2+, urine blood 3+ Rocephin 1 g IM ordered Pike catheter balloon was reinflated at bedside by nurse, no leakage from pike catheter was noted and patient reported improvement in symptoms/in no distress prior to discharge Advised to follow up with PCP and urologist in 1-2 days Patient verbalized understanding and agreeable with current plan of care Advised to return to ER immediately if symptoms worsen Time of 1ST Reevaluation: 01:22 Reevaluation 1ST: N/A Time of 2ND Reevaluation: 01:58 Patient Education/Counseling: Diagnosis, Treatment, Prognosis, Need For Follow Up Family Education/Counseling: No Family Present Departure 1 Departure Time of Disposition: 02:00 Impression: Primary Impression: UTI (urinary tract infection) Qualified Codes: N30.01 - Acute cystitis with hematuria Additional Impressions: Encounter for evaluation of Pike catheter History of BPH Disposition: 01 HOME / SELF CARE / HOMELESS Condition: Stable e-Prescriptions Sulfamethoxazole W/Trimethopri (Bactrim Ds Tablet) 1 Tab Tb 1 TAB PO BID for 7 Days, #14 TAB 0 Refills Prov: RACHEL CHRISTENSEN 05/02/24 Critical Care Note Critical Care Time?: No Stability Stability form required: No Heart Score Heart Score: Heart Score Response (Comments) Value History N/A 0 EKG N/A 0 Age N/A 0 Risk Factors N/A 0 Troponin N/A 0 Total 0 RACHEL CHRISTENSEN May 02, 2024 00:58
[2024-05-02 01:32] LABS: Urine Bacteria None Seen /hpf (None Seen)
[2024-05-02 01:51] LABS: Urine Blood 3+ /uL (Negative); Urine Clarity Turbid (Clear); Urine Color Colorless (Yellow); Urine Mucus FEW (None Seen); Urine Protein, UAD 1+ (Negative); Urine Specific Gravity 1.031 (1.001-1.035); Urine Squamous Epithelial Cell None Seen /hpf (<5); Urine Urobilinogen Normal (Negative); Urine WBC 419 /HPF (0-3); Urine pH 6.5 (5.0-9.0)
[2024-05-02] MEDS ORDERED: BACDST PO (01:58)
[2024-05-02] MEDS: cefTRIAXone SOD 1,000 MG VL IM ONE (02:05)
[2024-05-02 02:14] VITALS: BP 145/96; PULSE 85; RESP 14; TEMP 98.1; O2SAT 95
== END 2024-05-02 02:20 | disposition home or self-care (01) ==
LOC: ER 22:18
DX: T83.84XA Pain due to genitourinary prosthetic devices, implants and grafts, initial encounter (principal); N39.0 Urinary tract infection, site not specified; N40.0 Benign prostatic hyperplasia without lower urinary tract symptoms; Y92.89 Other specified places as the place of occurrence of the external cause
CPT/HCPCS: 81001; 96372; 99283; J0696

== ENCOUNTER 2024-05-08 19:32 | Emergency (ER) | payer BC ==
[~2024-05-08] VITALS: Ht 165.1 cm; Wt 77.1 kg
[~2024-05-08 19:32] MED LIST changes: +BACDST PO
[2024-05-08 20:13] VITALS: BP 173/98; PULSE 88; RESP 16; O2SAT 94
--- NOTE | 2024-05-08 23:12 | ED.PDOC ---
General HPI Comments 49 YEAR OLD MALE PRESENTS TO ER WITH PIKE CATHETER COMPLAINT X1 DAY. PATIENT WITH PMH OF BPH REPORTS THAT HE HAD A PIKE CATHETER PLACED ON 04/19/23 AFTER HAVING A CYSTOSCOPY PROCEDURE BY HIS UROLOGIST DR. TUBBS AND STATES TODAY AT 6:30 P.M. HE FELT HIS PIKE "CATHETER BALLOON POP" WHILE HE WAS TAKING A SHOWER WITH ASSOCIATED DRAINAGE FROM HIS PIKE CATHETER. DENIES ANY CURRENT PAIN AND STATES HE STATES HE CURRENTLY IS TAKING CIPROFLOXACIN ANTIBIOTICS FOR A UTI. PRESENTS TO ER AMBULATORY ON ARRIVAL, WITH STEADY GAIT, IN NO DISTRESS AND STATES HE WAS FOLLOWING UP WITH DR. TUBBS TOMORROW. DENIES FEVER, BODY ACHES, CHILLS, NAUSEA/VOMITING, ABDOMINAL/PELVIC PAIN, SKIN CHANGES, TRAUMA/INJURY, WILBUR TURIA/FURTHER CHANGES IN URINATION OR ANY FURTHER SYMPTOMS/COMPLAINTS Chief Complaint: Tube Replacement Time Seen by MD: 20:29 Primary Care Provider: UNKNOWN Reviewed notes: Nurses Notes, Medications, Allergies Allergies: Coded Allergies: NO KNOWN ALLERGIES (Unverified , 03/19/24) Home Meds Active Scripts Sulfamethoxazole W/Trimethopri (Bactrim Ds Tablet) 1 Tab Tb, 1 TAB PO BID for 7 Days, #14 TAB 0 Refills Prov:RACHEL CHRISTENSEN 05/02/24 Cephalexin Monohydrate (Cephalexin) 500 Mg Tab, 1 TAB PO QID for 7 Days, #28 TAB Prov:PABLITO LAUREANO DO 04/14/24 Tamsulosin Hcl (Flomax) 0.4 Mg Cap, 1 CAP PO DAILY, #90 CAP 3 Refills Prov:ARUN FRANCE MD 03/19/24 Information Source: Patient Mode of Arrival: Ambulatory Past Medical History Past Medical History (Other): BPH Surgical History: Denies all surgeries Family History Family History: Unknown Social History Smoker: Non-Smoker Alcohol: Occasionally Drugs: Denies Drug Use Lives In: Home Constitutional: denies: chills, diaphoresis, fatigue, fever, malaise, sweats, weakness, others EENTM: denies: blurred vision, double vision, ear bleeding, ear discharge, ear drainage, ear pain, ear ringing, eye pain, eye redness, hearing loss, mouth pain, mouth swelling, nasal discharge, nose bleeding, nose congestion, nose pain, photophobia, tearing, throat pain, throat swelling, voice changes, others Respiratory: denies: cough, hemoptysis, orthopnea, SOB at rest, shortness of breath, SOB with excertion, stridor, wheezing, others Cardiovascular: denies: chest pain, dizzy spells, diaphoresis, Dyspnea on exertion, edema, irregular heart beat, left arm pain, lightheadedness, palpitations, PND, syncope, others Gastrointestinal: denies: abdomen distended, abdominal pain, blood streaked bowels, constipated, diarrhea, dysphagia, difficulty swallowing, hematemesis, melena, nausea, poor appetite, poor fluid intake, rectal bleeding, rectal pain, vomiting, others Genitourinary: reports: others ( STATED IN HPI) Neurological: denies: dizziness, fainting, headache, left sided numbness, left sided weakness, numbness, paresthesia, pre-existing deficit, right sided numbness, right sided weakness, seizure, speech problems, tingling, tremors, weakness, others Musculoskeletal: denies: back pain, gout, joint pain, joint swelling, muscle pain, muscle stiffness, neck pain, others Integumetry: denies: bruises, change in color, change in hair/nails, dryness, laceration, lesions, lumps, rash, wounds, others Allergic/Immunocompromised: denies: Difficulty Healing, Frequent Infections, Hives, Itching, others Hematologic/Lymphatic: denies: anemia, blood clots, easy bleeding, easy bruising, swollen glands, others Endocrine: denies: excessive hunger, excessive sweating, excessive thirst, excessive urination, flushing, intolerance to cold, intolerance to heat, unexplained weight gain, unexplained weight loss, others Psychiatric: denies: anxiety, bipolar disorder, depression, hopeless, panic disorder, schizophrenia, sleepless, suicidal, others Physical Exam General Appearance: No Apparent Distress HEENT: Normal ENT Inspection, PERRL/EOMI, Pharynx Normal, TMs Normal Neck: Full Range of Motion, Non-Tender, Normal Respiratory: Chest Non-Tender, Lungs Clear, No Accessory Muscle Use, No Respiratory Distress, Normal Breath Sounds Cardiovascular: No Murmur, No Gallop, Regular Rate/Rhythm Breast Exam: Deferred Gastrointestinal: NOT DONE Genitalia: Other (DISLODGED PIKE CATHETER NOTED. NO PENILE BLEEDING/DRAINAGE NOTED. 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 Was a procedure done?: No Sedation Sedation?: No Differential Diagnosis Kidney stone (Female): N/A Urinary Problem (Male): Bladder Obstruction, Renal Failure, Urethritis, Urolithiasis, Other (URETHRAL TRAUMA) X-Ray, Labs, Meds, VS Vital Signs Date Time Temp Pulse Resp B/P (MAP) Pulse Ox O2 Delivery O2 Flow Rate FiO2 05/08/24 20:13 98.4 88 16 173/98 (123) 94 PIKE CATHETER REPLACED AT BEDSIDE BY NURSE WITHOUT COMPLICATION URINE DRAINING APPROPRIATELY WITHOUT ANY BLOOD/SEDIMENTS POST PIKE CATHETER REPLACEMENT PATIENT REPORTED IMPROVEMENT IN SYMPTOMS AND IN NO DISTRESS PRIOR TO DISCHARGE PATIENT STATES HE IS FOLLOWING UP WITH HIS UROLOGIST TOMORROW ADVISED TO CONTINUE CIPROFLOXACIN ANTIBIOTICS PRESCRIBED ADVISED TO FOLLOW UP WITH PCP IN 1-2 DAYS PATIENT VERBALIZED UNDERSTANDING AND AGREEABLE WITH CURRENT PLAN OF CARE ADVISED TO RETURN TO ER IMMEDIATELY IF SYMPTOMS WORSEN Time of 1ST Reevaluation: 22:44 Reevaluation 1ST: N/A Patient Education/Counseling: Diagnosis, Treatment, Prognosis, Need For Follow Up Family Education/Counseling: No Family Present Departure 1 Departure Time of Disposition: 23:02 Impression: Primary Impression: Encounter for Pike catheter replacement Additional Impression: History of BPH Disposition: 01 HOME / SELF CARE / HOMELESS Condition: Stable Discharged With: Self Critical Care Note Critical Care Time?: No Stability Stability form required: No Heart Score Heart Score: Heart Score Response (Comments) Value History N/A 0 EKG N/A 0 Age N/A 0 Risk Factors N/A 0 Troponin N/A 0 Total 0 RACHEL CHRISTENSEN May 08, 2024 23:12
== END 2024-05-08 23:31 | disposition home or self-care (01) ==
LOC: ER 19:32
DX: Z46.6 Encounter for fitting and adjustment of urinary device (principal); N40.0 Benign prostatic hyperplasia without lower urinary tract symptoms
CPT/HCPCS: 51702

== ENCOUNTER 2024-05-22 17:03 | Inpatient (IN) | payer BC ==
[~2024-05-22] VITALS: Ht 165.1 cm; Wt 78.6 kg
--- NOTE | 2024-05-22 17:14 | DVHINCON2 ---
Date of service: May 22, 2024 Referring Physician RUST Reason for Consultation Retained FB (iTind) History of Present Illness Patient has BPH and underwent minimally invasive procedure with iTIND placement on 05/17/24. Family cut the string attached for office removal. Multiple attempts were unsuccessful. He will need cystoscopy with removal of device under MAC. Past Medical History BPH Elevated PSA Past Surgical History TRUS/PNBX ITIND placement Family History NA Allergies: Coded Allergies: NO KNOWN ALLERGIES (Unverified , 03/19/24) Home Meds Active Scripts Sulfamethoxazole W/Trimethopri (Bactrim Ds Tablet) 1 Tab Tb, 1 TAB PO BID for 7 Days, #14 TAB 0 Refills Prov:RACHEL CHRISTENSEN 05/02/24 Cephalexin Monohydrate (Cephalexin) 500 Mg Tab, 1 TAB PO QID for 7 Days, #28 TAB Prov:PABLITO LAUREANO DO 04/14/24 Tamsulosin Hcl (Flomax) 0.4 Mg Cap, 1 CAP PO DAILY, #90 CAP 3 Refills Prov:ARUN FRANCE MD 03/19/24 Review of Systems Urinary retention Physical Exam Normal external genitalia Urethra with gross hematuria Assessment FB (iTIND) retained. Plan/Recommendation Cystoscopy with removal of FB Plan discussed with: Patient, Other CHRISTOPHER TUBBS MD May 22, 2024 17:14
[2024-05-22] MEDS ORDERED: MORPHINE SULFATE INJ 2 MG/ml SYRG IV PRN (17:15)
[2024-05-22] MEDS ORDERED: NITROGLYCERIN 0.4 MG SL TAB SL PRN (17:15)
[2024-05-22] MEDS ORDERED: ONDANSETRON HCL 4 MG/2 ML VIAL ONE (17:24)
[2024-05-22] MEDS ORDERED: KETOROLAC TROMETH 30 MG/ML 1ML VIAL ONE (17:24)
[2024-05-22] MEDS ORDERED: MIDAZOLAM HCL 2MG/2ML 2ml VIAL (1mg/ml) ONE (17:24)
[2024-05-22] MEDS ORDERED: fentaNYL CITRATE 100 MCG/2 ML VL ONE (17:24)
[2024-05-22] MEDS ORDERED: GLYCOPYRROLATE 0.2 MG/ML 1ML VIAL ONE (17:24)
[2024-05-22] MEDS ORDERED: NALOXONE HCL 1MG/ML 2ML SYRINGE ONE (17:27)
--- NOTE | 2024-05-22 17:29 | ED.PDOC ---
General HPI Comments HPI: Poor Historian. 49-year-old male sent by Dr. Wright his urologist to the ED to be admitted to the hospital for emergency cystoscopy. Patient has history of enlarged prostate who underwent a ITIND procedure with an associated Barry catheter placement. Today he went to the urologist office as scheduled to have the device removed and the Barry catheter removed. They attempted to remove the device but they were unable to so they put the Barry catheter back in again and sent him to the ED. Patient is currently on antibiotics. Patient has some burning with urination and some hematuria. Past Medical History: Enlarged prostate Past Surgical History: No Sx Hx Medications: oxybutynin, phenazopyridine, NORCO, Ciprofloxacin REVIEW OF SYSTEMS: CONSTITUTIONAL: Denies acute: fever, diaphoresis, chills, generalized weakness. HEAD: Denies acute: headache, photophobia Eyes: Denies acute: Double vision, vision loss, eye pain, eye discharge. EARS: Denies acute: tinnitus, hearing loss, ear discharge, ear pain, THROAT: Denies acute: sore throat, swelling, difficulty swallowing , pain with swallowing, change in voice. NECK: Denies acute: neck pain, neck swelling, stiff neck. HEART: Denies acute : chest pain, palpitations, LUNGS: Denies acute: SOB, wheezing, cough, hemoptysis ABDOMEN: Denies acute: abdominal pain, Nausea, Vomiting, diarrhea, melena , hematemesis, hematochezia SKIN: Denies acute: rash, redness, lesions, itchiness. EXTREMITIES: Denies acute: calf pain, numbness, tingling, weakness, denies pain in extremity. Denies acute: Low back pain. Neuro: Denies acute: focal neurological deficit, motor or sensory focal neurological deficit, tremors, seizure like activity, confusion, dizziness, change in mental status, loss of bowel or bladder function, cauda equina like symptoms. : Denies acute: flank pain, increase in urinary frequency. PSYCH: Denies acute: hallucination, suicidal ideation, homicidal ideation. PHYSICAL EXAM: General: no acute distress, awake and alert. Head: normocephalic, atraumatic. Neck: supple, trachea is midline, no swelling. Throat: Normal phonation. Eyes:, no erythema, no purulent discharge, no proptosis, no icterus. Heart: regular rate, regular rhythm, no significant murmur appreciated. Lungs: no apparent respiratory distress, Able to speak in full sentences. No wheezing, no rhonchi, no crackles. No stridors Clear to auscultation bilaterally. Abdomen: Minimal suprapubic tender to palpation, non distended, soft, no guarding, no rebound, + bowel sounds. Neuro: Awake, Alert, oriented to name, self, situation, follows commands GCS=15. Speech is normal. Skin: no petechia, no purpura, no cyanosis, non-pale, not jaundice. Lower extremities: --no - Pitting edema no deformity, no focal swelling, no calf TTP. Makes eye contact. moves all four extremities. Face: no apparent facial droop. Ambulating in the ED independently. ED COURSE: Chief Complaint: Foreign Body Time Seen by MD: 17:25 Primary Care Provider: none Reviewed notes: Nurses Notes, Medications, Allergies Allergies: Coded Allergies: NO KNOWN ALLERGIES (Unverified , 03/19/24) Home Meds Active Scripts Tamsulosin Hcl (Flomax) 0.4 Mg Cap, 1 CAP PO DAILY, #90 CAP 3 Refills Prov:ARUN FRANCE MD 03/19/24 Reported Medications Hydrocodone-Acetaminophen (Hydrocodone Bitartrate/AC 5-325 mg) 1 Tab Tab, 1 TAB PO, TAB 05/22/24 Ciprofloxacin Hcl (Ciprofloxacin Hcl) 500 Mg Tab, 1 TAB PO BID, #14 TAB 05/22/24 Phenazopyridine HCl (Phenazopyridine Hydrochlo) 100 Mg Tab, 100 MG PO, TAB 05/22/24 Oxycodone Hcl (OXYCODONE HCL) 5 Mg Tb, 5 MG PO, TAB 05/22/24 Finasteride (Finasteride) 5 Mg Tab, 1 TAB PO DAILY, #30 TAB 11 Refills 05/22/24 Information Source: Patient, Relative (Father) Mode of Arrival: Ambulatory Severity: Moderate Timing: Days Duration: Since onset, Days Prehospital treatment: None Onset: From foreign body Symptoms: Hematuria History of: None Location: Suprapubic Penile discharge: None associated signs and symptoms: Hematuria Past Medical History PAST MEDICAL HISTORY: Denies Surgical History: Denies all surgeries Family History Family History: Reviewed,noncontributory to illness, Unknown Social History Smoker: Non-Smoker Alcohol: Denies ETOH Use Drugs: Denies Drug Use Lives In: Home Was a procedure done? Was a procedure done?: No Differential Diagnosis Kidney stone (Female): N/A Urinary Problem (Male): Bladder Outlet, Bladder Obstruction, Epididymitis, P rostatitis, Plelonephritis, Post op Complications, Renal Failure, Urethritis, Urinary Retention, Urolithiasis, UTI X-Ray, Labs, Meds, VS Vital Signs Date Time Temp Pulse Resp B/P (MAP) Pulse Ox O2 Delivery O2 Flow Rate FiO2 05/22/24 17:11 98.1 77 17 168/96 (120) 98 98.1 [place] [address] Ph: [phone] DIAGNOSTIC IMAGING Diagnostic Imaging Report : [id number] Signed PATIENT: VICTORIANO COPE ACCT: [id number] UNIT: [id number] : 1975 LOC: ER ROOM / BED: / AGE / SEX: 49 / M ADM STATUS: REG ER SERVICE [id number] ORDERING PHYSICIAN: PABLITO LAUREANO DO PROCEDURE(s): ABPL - CT AB PEL WO CON-NO ORAL OR IV REASON: FB part of old barry cath retained in bladder ORDER NUMBER(s): [id number], ACCESSION NUMBER(s): [id number] EXAM: CT Abdomen and Pelvis Without Intravenous Contrast CLINICAL INDICATION: FB part of old barry cath retained in bladder TECHNIQUE: Axial computed tomography images of the abdomen and pelvis without intravenous contrast. This CT exam was performed using one or more of the following dose reduction techniques: automated exposure control, adjustment of the mA and/or kV according to patient size, and/or use of iterative reconstruction technique. CONTRAST: RADIATION DOSE: CTDIvol = 8.83 mGy, DLP = 521.65 mGy-cm COMPARISON: CT CT AB PEL WO CON-NO ORAL OR IV on DOS: 03/19/24 FINDINGS: LUNG BASES: Unremarkable. No mass. No consolidation. ABDOMEN: LIVER: Fatty infiltration of the liver. Hepatic cysts. GALLBLADDER AND BILE DUCTS: Unremarkable. No calcified stones. No ductal dilation. PANCREAS: Unremarkable. No ductal dilation. SPLEEN: Unremarkable. No splenomegaly. ADRENALS: Unremarkable. No mass. KIDNEYS AND URETERS: Unremarkable. No obstructing stones. No hydronephrosis. STOMACH AND BOWEL: Constipation with suggestion of fecal impaction of the rectum. Colonic diverticulosis without acute diverticulitis. No obstruction. PELVIS: APPENDIX: No findings to suggest acute appendicitis. BLADDER: Linear metallic foreign body in the urinary bladder. Clinical correlation is recommended. No stones. REPRODUCTIVE: Enlarged prostate. ABDOMEN and PELVIS: INTRAPERITONEAL SPACE: Unremarkable. No free air. No significant fluid collection. BONES/JOINTS: No acute fracture. No dislocation. SOFT TISSUES: Unremarkable. VASCULATURE: Scattered calcified atherosclerotic disease of aorta. No abdominal aortic aneurysm. LYMPH NODES: Unremarkable. No enlarged lymph nodes. OTHER FINDINGS: . IMPRESSION: 1. Constipation with suggestion of fecal impaction of the rectum. 2. Enlarged prostate. 3. Linear metallic foreign body in the urinary bladder. Clinical correlation is recommended. 4. Colonic diverticulosis without acute diverticulitis. ATED BY: MART WASHINGTON MD DICTATED DATE/TIME: 05/22/241809 SIGNED BY: MART WASHINGTON MD SIGNED DATE/TIME: 05/22/241809 CC: Time of 1ST Reevaluation: 17:55 Reevaluation 1ST: Unchanged Patient Education/Counseling: Diagnosis, Treatment Family Education/Counseling: Diagnosis, Treatment Comments Patient presented with the above HPI.---retained surgical part in the bladder---workup was initiated. patient was found with the above mentioned diagnosis. the following medications were ordered: please refer to order lists of meds and tests obtained by myself Dr. Laureano. Patient ED course and VS have been stabilized. Patient has been reassessed in the ED and remained in a stable condition. Pertinent incidental findings were discussed with the patient and/or family. Patient/family voices understanding and is agreeable with plan. Patient has been observed in the ED adequate length of time to insure improvement/stability. Escalation of care considered: Consideration of escalation to observation or admission Patient was ADMITTED to the hospital for further evaluation and treatment of their presentation. Patient complained of some burning with urination and hematuria. Antibiotics were initiated. Labs and CT scan were ordered. Patient is not on blood thinners. All the reports of any imaging studies that were ordered by myself were reviewed by myself. Departure 1 Departure Time of Disposition: 17:30 Impression: Primary Impression: Retained foreign body Additional Impressions: Fecal impaction Enlarged prostate Postoperative complication Disposition: ADMITTED INPATIENT Admit to: Tele Condition: Stable Discharged With: Self Critical Care Note Critical Care Time?: No Heart Score Heart Score: Heart Score Response (Comments) Value History N/A 0 EKG N/A 0 Age N/A 0 Risk Factors N/A 0 Troponin N/A 0 Total 0 I personally scribed for PABLITO LAUREANO DO ([email or web address]) on 05/22/24 at 17:29. Electronically submitted by Balwinder Donahue ([email or web address]). I personally scribed for PABLITO LAUREANO DO ([email or web address]) on 05/22/24 at 17:33. Electronically submitted by Balwinder Donahue ([email or web address]). I personally scribed for PABLITO LAUREANO DO ([email or web address]) on 05/22/24 at 18:16. Electronically submitted by Barry Rodriguez ([email or web address]). I personally scribed for PABLITO LAUREANO DO ([email or web address]) on 05/22/24 at 19:00. Electronically submitted by Barry Rodriguez ([email or web address]). PABLITO LAUREANO DO May 22, 2024 17:29
[2024-05-22] MEDS: cefTRIAXone 1GM/50ML D5W 50 ML IV ONE (17:30)
[2024-05-22] MEDS: LIDOCAINE 2% JELLY 11ml (GLYDO) ONE (17:37)
[2024-05-22 17:48] LABS: Urine Bacteria None Seen /hpf (None Seen)
[2024-05-22] MEDS ORDERED: HYDROmorphone HCL 2 MG/ML VL/or syr ONE (17:54)
[2024-05-22 18:07] LABS: Basophils # (auto) 0.1 10 ^3/uL (0-0.2); Basophils % (auto) 0.9 % (0.0-2.0); Eosinophils # (auto) 0.5 10 ^3/uL (0-0.8); Hematocrit 48.1 % (41.0-53.0); Hemoglobin 16.2 g/dL (13.5-17.5); Lymphocytes # (auto) 1.5 10 ^3/uL (0.4-5.4); Lymphocytes % (auto) 18.9 % (10.0-50.0); Mean Corpuscular Hemoglobin 30.3 pg (28.0-32.0); Mean Corpuscular Hgb Conc. 33.7 g/dL (32.0-36.0); Monocytes # (auto) 0.4 10 ^3/uL (0-1.3); Neutrophils # (auto) 5.3 10 ^3/uL (1.6-8.6); Neutrophils % (auto) 69.2 % (37.0-80.0); Nucleated Red Blood Cells % 0.2 %; Platelet Count (auto) 256 10^3/uL (140-450); Red Blood Cells 5.35 10^6/uL (4.5-5.90); Red Cell Distribution Width 13.6 % (11.8-14.3); White Blood Cell 7.7 10^3/uL (4.4-10.8)
--- NOTE | 2024-05-22 18:13 | DVH ---
EXAM: CT Abdomen and Pelvis Without Intravenous Contrast CLINICAL INDICATION: FB part of old barry cath retained in bladder TECHNIQUE: Axial computed tomography images of the abdomen and pelvis without intravenous contrast. This CT exam was performed using one or more of the following dose reduction techniques: automated exposure control, adjustment of the mA and/or kV according to patient size, and/or use of iterative r econstruction technique. CONTRAST: RADIATION DOSE: CTDIvol = 8.83 mGy, DLP = 521.65 mGy-cm COMPARISON: CT CT AB PEL WO CON-NO ORAL OR IV on DOS: 03/19/24 FINDINGS: LUNG BASES: Unremarkable. No mass. No consolidation. ABDOMEN: LIVER: Fatty infiltration of the liver. Hepatic cysts. GALLBLADDER AND BILE DUCTS: Unremarkable. No calcified stones. No ductal dilation. PANCREAS: Unremarkable. No ductal dilation. SPLEEN: Unremarkable. No splenomegaly. ADRENALS: Unremarkable. No mass. KIDNEYS AND URETERS: Unremarkable. No obstructing stones. No hydronephrosis. STOMACH AND BOWEL: Constipation with suggestion of fecal impaction of the rectum. Colonic divertic ulosis without acute diverticulitis. No obstruction. PELVIS: APPENDIX: No findings to suggest acute appendicitis. BLADDER: Linear metallic foreign body in the urinary bladder. Clinical correlation is recommended. No stones. REPRODUCTIVE: Enlarged prostate. ABDOMEN and PELVIS: INTRAPERITONEAL SPACE: Unremarkable. No free air. No significant fluid collection. BONES/JOINTS: No acute fracture. No dislocation. SOFT TISSUES: Unremarkable. VASCULATURE: Scattered calcified atherosclerotic disease of aorta. No abdominal aortic aneurysm. LYMPH NODES: Unremarkable. No enlarged lymph nodes. OTHER FINDINGS: . IMPRESSION: 1. Constipation with suggestion of fecal impaction of the rectum. 2. Enlarged prostate. 3. Linear metallic foreign body in the urinary bladder. Clinical correlation is recommended. 4. Colonic diverticulosis without acute diverticulitis.
[2024-05-22 18:25] LABS: Anion Gap 7 (5-15); Aspartate Aminotransferase 27 U/L (13-40); BUN/Creatinine Ratio 15.1 (10.0-20.0); Bilirubin, Total 0.4 mg/dL (0.2-1.0); Blood Urea Nitrogen 14 mg/dL (9-23); Calcium 10.2 mg/dL (8.7-10.4); Carbon Dioxide 31 mmol/L (20-31); Chloride 102 mmol/L (98-107); Potassium 4.2 mmol/L (3.5-5.1); Sodium 140 mmol/L (136-145); Total Protein 7.5 g/dL (5.7-8.2)
[2024-05-22 18:35] LABS: Alanine Aminotransferase 55 U/L (7-40); Albumin 4.8 g/dL (3.2-4.8); Alkaline Phosphatase 119 U/L (46-116); Glucose 119 mg/dL (74-106)
[2024-05-22 19:03] VITALS: O2SAT 97
--- NOTE | 2024-05-22 19:07 | DVHOP2 ---
Operative Report - 2 Report Details Date: 05/22/24 Preop Diagnosis: Retained foreign body Postop Diagnosis: Same Surgeon: Christopher Tubbs Anesthesiologist: Sreekanth Anesthesia: Mac Consent: The patient was informed of the risks and benefits of the procedure. These include but are not limited to complications of anesthesia, postoperative infection, incomplete relief of symptoms, recurrence of symptoms, damage to blood vessels, nerves and tendons, deep venous thrombosis, pulmonary embolism and possible need for repeat surgery in the future. Indications for Surgery: Patient underwent iTIND placement on . Postoperatively the device could not be removed in the office due to the string cut by the patient Name of Procedure Performed Cystoscopy with foreign body removal Procedure Details Procedure Details: Patient was taken to the operating room and underwent IV sedation. He was placed in dorsal lithotomy position with the area of the genitalia prepped and draped in usual sterile manner. Lidocaine gel was applied to the penile urethra. Twenty-two Mongolian rigid cystoscope was used to access the urethra in the bladder. The device was found to be sitting in the bladder with some blood clots. The device was grasped at the tip and removed through the sheath under direct vision. Cystoscope was then removed via entirety. [address] Solorzano catheter was then inserted and continuous bladder irrigation was started. Multiple blood clots was also evacuated. Patient is awakened and taken to recovery room in stable condition Specimen: Foreign body (prostate implant) Condition Fair Disposition CHRISTOPHER TUBBS MD May 22, 2024 19:07
[2024-05-22] MEDS ORDERED: HYDROmorphone HCL 2 MG/ML VL/or syr IV PRN (19:15)
[2024-05-22 19:33] LABS: Urine Blood 3+ /uL (Negative); Urine Clarity Ex.Turbid (Clear); Urine Color Red (Yellow); Urine Protein, UAD 2+ (Negative); Urine Specific Gravity 1.008 (1.001-1.035); Urine Squamous Epithelial Cell None Seen /hpf (<5); Urine Urobilinogen Normal (Negative); Urine WBC 12 /HPF (0-3); Urine pH 6.5 (5.0-9.0)
[2024-05-22 19:43] LABS: Prothrombin Time 10.6 sec (9.3-11.8)
[2024-05-22 20:08] LABS: Basophils # (auto) 0.1 10 ^3/uL (0-0.2); Basophils % (auto) 0.6 % (0.0-2.0); Eosinophils # (auto) 0.3 10 ^3/uL (0-0.8); Eosinophils % (auto) 3.6 % (0.0-7.0); Hematocrit 41.3 % (41.0-53.0); Hemoglobin 14.3 g/dL (13.5-17.5); Lymphocytes # (auto) 1.3 10 ^3/uL (0.4-5.4); Lymphocytes % (auto) 14.8 % (10.0-50.0); Mean Corpuscular Hemoglobin 30.8 pg (28.0-32.0); Mean Corpuscular Hgb Conc. 34.6 g/dL (32.0-36.0); Mean Corpuscular Volume 88.9 fL (80.0-100.0); Monocytes # (auto) 0.5 10 ^3/uL (0-1.3); Monocytes % (auto) 5.5 % (0.0-12.0); Neutrophils # (auto) 6.4 10 ^3/uL (1.6-8.6); Neutrophils % (auto) 75.5 % (37.0-80.0); Platelet Count (auto) 222 10^3/uL (140-450); Red Blood Cells 4.64 10^6/uL (4.5-5.90); Red Cell Distribution Width 13.4 % (11.8-14.3); White Blood Cell 8.5 10^3/uL (4.4-10.8)
[2024-05-22 20:26] LABS: Alkaline Phosphatase 100 U/L (46-116); Anion Gap 6 (5-15); Aspartate Aminotransferase 27 U/L (13-40); BUN/Creatinine Ratio 13.8 (10.0-20.0); Bilirubin, Total 0.3 mg/dL (0.2-1.0); Blood Urea Nitrogen 11 mg/dL (9-23); Calcium 8.8 mg/dL (8.7-10.4); Carbon Dioxide 27 mmol/L (20-31); Glucose 95 mg/dL (74-106); Potassium 4.6 mmol/L (3.5-5.1); Sodium 141 mmol/L (136-145); Total Protein 6.3 g/dL (5.7-8.2)
[2024-05-22 20:28] LABS: Alanine Aminotransferase 43 U/L (7-40); Chloride 108 mmol/L (98-107)
[2024-05-22 21:00] VITALS: BP 128/83; PULSE 70; RESP 16; TEMP 98.1; O2SAT 95
[2024-05-22] MEDS ORDERED: FINA5TAB4 PO (23:37)
[2024-05-22] MEDS ORDERED: CIPR500T4 PO (23:42)
[2024-05-22] MEDS ORDERED: HYDR-4902 PO (23:42)
[2024-05-22] MEDS ORDERED: OXY5T PO (23:42)
[2024-05-22] MEDS ORDERED: PHEN-1044 PO (23:42)
[2024-05-23] VITALS (7 sets, daily range): BP systolic 119–163; BP diastolic 87–93; PULSE 53–68; RESP 16–18; TEMP 97.5–98.7; O2SAT 96–100
--- NOTE | 2024-05-23 09:06 | DVHDS2 ---
New Physician D'charge PN Admitting Diagnosis Admitting Diagnosis Retained foreign body Discharge Diagnosis Same Operations or Procedures Cystoscopy with foreign body removal Reason(s) For Hospitalization Surgery Hospital Course Patient was taken to the operating room and underwent IV sedation. He was placed in dorsal lithotomy position with the area of the genitalia prepped and draped in usual sterile manner. Lidocaine gel was applied to the penile urethra. Twenty-two Kyrgyz rigid cystoscope was used to access the urethra in the bladder. The device was found to be sitting in the bladder with some blood clots. The device was grasped at the tip and removed through the sheath under direct vision. Cystoscope was then removed via entirety. [address] Solorzano catheter was then inserted and continuous bladder irrigation was started. Multiple blood clots was also evacuated. Patient is awakened and taken to recovery room in stable condition Treatment Plan Discharge Condition of Discharge Fair Disposition Home Discharge Instructions Diet: Regular Activity: Light activity Activity comment: Solorzano to gravity Medications: Given Follow Up Care Follow Up/Referral: Follow up as outpatient in one week Discharge Statement: "Patient was advised to return to the ER or call 911 if any headaches, dizziness, shortness of breath, chest pain, abdominal pain, bleeding, fevers, or worsening of medical condition. Patient was counseled about treatment plan, medications, possible side effects, patientverbalized understanding. All questions were answered to the best of my ability. This discharge took greater then 30 minutes in planning, reviewing do cumentation, counseling the patient, and discussing with other team members." CHRISTOPHER TUBBS MD May 23, 2024 09:06
[2024-05-24 05:00] VITALS: BP 155/83; PULSE 53; RESP 18; TEMP 97.5; O2SAT 99
[2024-05-24 08:00] VITALS: PULSE 84; RESP 18; O2SAT 95
[2024-05-24 09:00] VITALS: BP 139/80; PULSE 56; RESP 16; TEMP 97.9; O2SAT 98
[2024-05-24 13:00] VITALS: BP_SYST 138; BP_SYST 139; BP_DIAS 83; BP_DIAS 91; PULSE 107; PULSE 70; RESP 18; RESP 20; TEMP 97.3; TEMP 98.1; O2SAT 96; O2SAT 97
--- NOTE | 2024-05-24 15:20 | DVHPN2 ---
Subjective Patient denies any symptoms. Reviewed: Care Plan, H&P, Labs, Medications Changes from previous H/P or p: No Changes General: Per HPI Objective Vitals Vital Signs Date Time Temp Pulse Resp B/P (MAP) Pulse Ox O2 Delivery O2 Flow Rate FiO2 05/24/24 13:00 98.1 70 18 139/91 (107) 96 98.1 05/24/24 08:00 Room Air* 0 21 Intake/Output Intake and Output 05/24/24 07:00 Intake Total 1280 ml Output Total 46016 ml Balance -65658 ml Intake Oral 1280 ml Output Urine Total 4250 ml Other 7900 ml # Bowel Movements 1 General Appearance: Alert, Oriented X3, Cooperative, No acute distress HEENT: Atraumatic, PERRLA Lungs: Clear to auscultation, Normal air movement Cardiovascular: Normal S1, Normal S2 Genitourinary: Other (Solorzano catheter with mild hematuria) Musculoskeletal: Normal sensory function, Normal motor function Neuro: Normal gait, Normal speech Psych/Mental Status: Mental status NL, Mood NL Medications Current Medications Medications Dose Ordered Sig/Holly Route Start Time Stop Time Status Last Admin Dose Admin Nitroglycerin 0.4 mg Q5MINP PRN SL 05/22/24 17:15 Morphine Sulfate 2 mg Q30M PRN IV 05/22/24 17:15 Acetaminophen/ Hydrocodone Bitart 1 tab Q6HP PRN PO 05/22/24 19:15 Laboratory Results Laboratory Tests 05/22/24 19:54 Urinalysis Test 05/22/24 17:29 Urine Color Red (Yellow) H Urine Clarity Ex.turbid (Clear) Urine pH 6.5 (5.0-9.0) Urine Specific [place] 1.008 (1.001-1.035) Urine Protein 2+ (Negative) H Urine Ketones Negative (Negative) Urine Blood 3+ /uL (Negative) H Urine Nitrite Negative (Negative) Urine Bilirubin Negative (Negative) Urine Urobilinogen Normal mg/dL (Negative) Urine Leukocyte Esterase 1+ /uL (Negative) Urine RBC 71066 /hpf (0 - 3) Urine Microscopic WBC 12 /HPF (0-3) H Urine Squamous Epithelial Cells None seen /hpf (<5) Urine Bacteria None seen /hpf (None Seen) Urine Glucose Normal mg/dL (Normal) Labs and/or images reviewed: Labs reviewed by me, Image(s) reviewed by me Assessment/Plan Assessment/Plan Impression: -removal of foreign body from bladder -prostatomegaly -hematuria -cystitis Plan: -patient postop cystoscopy with foreign body removal as well as removal of clots. Patient had residual ureter device remaining in his bladder from outpatient procedure. Patient was admitted with CBI. Patient has improved hematuria. -pain management -start IV antibiotic therapy -restart Flomax and finasteride -discharge once cleared from continuous bladder irrigation by Urology. Total time spent with patient discussing and formulating plan of care: 35 minutes. This medical document was created using an electronic medical record system with [employer] dictation system. Although this document has been carefully reviewed, there may still be some phonetic and typographical errors. These areas are purely typographical due to imperfections of the software programs, and do not reflect any compromise in the patient's medical care. Plan discussed with: Patient, Other (RN) My Orders Orders - GURINDER FREEMAN NP Procedure Category Date Status Time Discharge DISCHARGE 05/24/24 Transmitted 13:13 Date of Service: May 24, 2024 Billing Provider: GURINDER FREEMAN NP Common Visit Codes: [id number] INP/OBS CARE(HIGH) GURINDER FREEMAN NP May 24, 2024 15:20
[2024-05-24] MEDS: cefTRIAXone 1GM/50ML D5W 50 ML IV SCH (16:56)
[2024-05-24 17:00] VITALS: BP 135/81; PULSE 66; RESP 18; TEMP 98; O2SAT 96
[2024-05-24 21:00] VITALS: BP 131/79; PULSE 68; RESP 20; TEMP 98.1; O2SAT 96
[2024-05-25] VITALS (7 sets, daily range): BP systolic 135–167; BP diastolic 85–112; PULSE 58–87; RESP 18–20; TEMP 97.7–98.1; O2SAT 96–98
[2024-05-25 07:08] LABS: Basophils # (auto) 0.1 10 ^3/uL (0-0.2); Basophils % (auto) 0.8 % (0.0-2.0); Eosinophils # (auto) 0.5 10 ^3/uL (0-0.8); Eosinophils % (auto) 6.7 % (0.0-7.0); Hematocrit 44.6 % (41.0-53.0); Hemoglobin 15.7 g/dL (13.5-17.5); Lymphocytes # (auto) 1.8 10 ^3/uL (0.4-5.4); Mean Corpuscular Hemoglobin 31.4 pg (28.0-32.0); Mean Corpuscular Hgb Conc. 35.2 g/dL (32.0-36.0); Mean Corpuscular Volume 89.3 fL (80.0-100.0); Monocytes # (auto) 0.5 10 ^3/uL (0-1.3); Monocytes % (auto) 6.9 % (0.0-12.0); Neutrophils # (auto) 4.2 10 ^3/uL (1.6-8.6); Neutrophils % (auto) 59.6 % (37.0-80.0); Platelet Count (auto) 240 10^3/uL (140-450); Red Blood Cells 4.99 10^6/uL (4.5-5.90); Red Cell Distribution Width 13.4 % (11.8-14.3); White Blood Cell 7.1 10^3/uL (4.4-10.8)
[2024-05-25 07:17] LABS: Calcium 9.8 mg/dL (8.7-10.4); Chloride 105 mmol/L (98-107); Potassium 4.2 mmol/L (3.5-5.1); Sodium 139 mmol/L (136-145)
[2024-05-25 07:18] LABS: Anion Gap 6 (5-15); Carbon Dioxide 28 mmol/L (20-31)
[2024-05-25 07:23] LABS: Glucose 92 mg/dL (74-106)
[2024-05-25 07:24] LABS: BUN/Creatinine Ratio 19.8 (10.0-20.0); Blood Urea Nitrogen 18 mg/dL (9-23)
[2024-05-25] MEDS: FINASTERIDE 5 MG TAB PO SCH (09:30)
[2024-05-25] MEDS: TAMSULOSIN HYDROCHLORIDE 0.4 MG CAP PO SCH (09:30)
--- NOTE | 2024-05-25 10:24 | DVHPN2 ---
Progress Note - Dictate Date Seen: May 25, 2024 Has the PT tested + for MRSA If YES, has PT been informed?: No Medical Necessity Reason Pt with a Central, PICC or Fol: Yes The following are medically ne: Solorzano Catheter Medical Necessity Reason Patient was not discharged on 05/23 due to persistent gross hematuria with clots requiring CBI. Subjective He is doing well with CBI discontinued. vital signs Vital Sign Date Time Temp Pulse Resp B/P (MAP) Pulse Ox O2 Delivery O2 Flow Rate FiO2 05/25/24 08:55 97.8 58 18 138/88 (105) 98 97.8 05/25/24 08:00 Room Air* 0 21 Total Intake and Output 05/24/24 05/24/24 05/25/24 15:00 23:00 07:00 Intake Total 360 ml 690 ml 600 ml Output Total 6450 ml 3300 ml Balance 360 ml -5760 ml -2700 ml medications Current Medications Medications Dose Ordered Sig/Holly Route Start Time Stop Time Status Last Admin Dose Admin Nitroglycerin 0.4 mg Q5MINP PRN SL 05/22/24 17:15 Morphine Sulfate 2 mg Q30M PRN IV 05/22/24 17:15 Acetaminophen/ Hydrocodone Bitart 1 tab Q6HP PRN PO 05/22/24 19:15 Ceftriaxone Sodium 50 ml @ 100 mls/hr DAILY@09 IV 05/24/24 15:30 05/25/24 09:30 100 MLS/HR Finasteride 5 mg DAILY PO 05/25/24 10:00 05/25/24 09:30 5 MG Tamsulosin HCl 0.4 mg DAILY PO 05/25/24 10:00 05/25/24 09:30 0.4 MG objective CBI has been clamped off and the urine is cleared. Solorzano catheter is removed by ut laboratory and microbiology Laboratory Tests 05/25/24 06:40 Test 05/25/24 06:40 Range/Units Serum Glucose 92 74-106 mg/dL Problem List BPH Status post ITIND procedure with subsequent removal of the displaced device. Assessment/Plan We will DC Solorzano catheter and discharged after voided. If unable to urinate, a 16 [place] coude tip catheter should be replaced Plan discussed with: Patient CHRISTOPHER TUBBS MD May 25, 2024 10:24
[2024-05-25] MEDS: SODIUM CHLORIDE 0.9% 500 ML IV ONE (10:25)
[2024-05-25] MEDS: HYDROcodone-ACET 10/325MG TAB PO PRN (11:55)
[2024-05-25] MEDS ORDERED: CIP500T PO (14:47)
[2024-05-25] MEDS ORDERED: HYDR-4902 PO (14:47)
--- NOTE | 2024-05-25 14:50 | DVHPN2 ---
Subjective Patient reporting penile pain Reviewed: Care Plan, H&P, Labs, Medications Changes from previous H/P or p: No Changes General: Per HPI Psych: Sleep Problems Objective Vitals Vital Signs Date Time Temp Pulse Resp B/P (MAP) Pulse Ox O2 Delivery O2 Flow Rate FiO2 05/25/24 13:00 97.8 72 18 167/112 (130) 98 97.8 05/25/24 08:00 Room Air* 0 21 Intake/Output Intake and Output 05/25/24 07:00 Intake Total 1650 ml Output Total 9750 ml Balance -8100 ml Intake Oral 1600 ml IV Total 50 ml Output Urine Total 6200 ml Other 3550 ml # Bowel Movements 3 General Appearance: Alert, Oriented X3, Cooperative, No acute distress HEENT: Atraumatic, PERRLA Lungs: Clear to auscultation, Normal air movement Cardiovascular: Normal S1, Normal S2 Genitourinary: Other (Solorzano catheter with mild hematuria) Musculoskeletal: Normal sensory function, Normal motor function Neuro: Normal gait, Normal speech Skin: Dry, Intact Psych/Mental Status: Mental status NL, Mood NL Medications Current Medications Medications Dose Ordered Sig/Holly Route Start Time Stop Time Status Last Admin Dose Admin Nitroglycerin 0.4 mg Q5MINP PRN SL 05/22/24 17:15 Morphine Sulfate 2 mg Q30M PRN IV 05/22/24 17:15 Acetaminophen/ Hydrocodone Bitart 1 tab Q6HP PRN PO 05/22/24 19:15 05/25/24 11:55 1 TAB Ceftriaxone Sodium 50 ml @ 100 mls/hr DAILY@09 IV 05/24/24 15:30 05/25/24 09:30 100 MLS/HR Finasteride 5 mg DAILY PO 05/25/24 10:00 05/25/24 09:30 5 MG Tamsulosin HCl 0.4 mg DAILY PO 05/25/24 10:00 05/25/24 09:30 0.4 MG Laboratory Results Laboratory Tests 05/25/24 06:40 Chemistry Test 05/25/24 06:40 Calcium Level 9.8 mg/dL (8.7-10.4) Urinalysis Test 05/22/24 17:29 Urine Color Red (Yellow) H Urine Clarity Ex.turbid (Clear) Urine pH 6.5 (5.0-9.0) Urine Specific [place] 1.008 (1.001-1.035) Urine Protein 2+ (Negative) H Urine Ketones Negative (Negative) Urine Blood 3+ /uL (Negative) H Urine Nitrite Negative (Negative) Urine Bilirubin Negative (Negative) Urine Urobilinogen Normal mg/dL (Negative) Urine Leukocyte Esterase 1+ /uL (Negative) Urine RBC 89206 /hpf (0 - 3) Urine Microscopic WBC 12 /HPF (0-3) H Urine Squamous Epithelial Cells None seen /hpf (<5) Urine Bacteria None seen /hpf (None Seen) Urine Glucose Normal mg/dL (Normal) Labs and/or images reviewed: Labs reviewed by me, Image(s) reviewed by me Assessment/Plan Assessment/Plan Impression: -removal of foreign body from bladder -prostatomegaly -hematuria -cystitis Plan: -discussed case with urologist, Dr. Hernandez. Patient will be discharged today. U nable to urinate after CBI catheter was removed. Coude we will be placed Discharge prescriptions provided. -pain management -start IV antibiotic therapy -restart Flomax and finasteride -discharge once cleared from continuous bladder irrigation by Urology. Total time spent with patient discussing and formulating plan of care: 35 minutes. This medical document was created using an electronic medical record system with [employer] dictation system. Although this document has been carefully reviewed, there may still be some phonetic and typographical errors. These areas are purely typographical due to imperfections of the software programs, and do not reflect any compromise in the patient's medical care. Plan discussed with: Patient, Other (RN, Father) My Orders Orders - GURINDER FREEMAN NP Procedure Category Date Status Time Discharge DISCHARGE 05/24/24 Transmitted 15:16 Ceftriaxone 1gm/50ml PHA 05/24/24 In Process D5w (Rocephin) 15:30 Finasteride Tablet PHA 05/25/24 In Process (Proscar Tablet) 10:00 Tamsulosin PHA 05/25/24 In Process Hydrochloride (Flomax) 10:00 Insert Solorzano Catheter JANET 05/25/24 In Process 14:24 Date of Service: May 25, 2024 Billing Provider: GURINDER FREEMAN NP Common Visit Codes: [id number] INP/OBS CARE(HIGH) GURINDER FREEMAN NP May 25, 2024 14:50
[2024-05-25] MEDS: LIDOCAINE 2% JELLY 11ml (GLYDO) UR ONE (17:01)
[2024-05-26 01:00] VITALS: BP 128/81; PULSE 71; RESP 18; TEMP 97.9; O2SAT 98
[2024-05-26 04:46] VITALS: BP 128/75; PULSE 66; RESP 18; TEMP 97.9; O2SAT 96
[2024-05-26 05:00] VITALS: BP 128/75; PULSE 66; RESP 18; TEMP 97.9; O2SAT 96
[2024-05-26 09:00] VITALS: BP 140/83; PULSE 65; RESP 18; TEMP 98.2; O2SAT 97
== END 2024-05-26 11:18 | disposition home or self-care (01) | DRG 700 ==
LOC: ER 17:03 → OVERFLOW 17:14 → WEST WING 20:58
PROVIDERS: ADMIT Nurse Practitioner Acute Care; ATTEND Nurse Practitioner Acute Care
PROC: 0TCB8ZZ Extirpation of Matter from Bladder, Via Natural or Artificial Opening Endoscopic (ICD-10-PCS; principal; 2024-05-22 18:35)
DX: T19.1XXA Foreign body in bladder, initial encounter (principal); N40.0 Benign prostatic hyperplasia without lower urinary tract symptoms; N30.91 Cystitis, unspecified with hematuria; K56.41 Fecal impaction; R97.20 Elevated prostate specific antigen [PSA]; W44.8XXA Other foreign body entering into or through a natural orifice, initial encounter; N32.89 Other specified disorders of bladder; Z79.1 Long term (current) use of non-steroidal anti-inflammatories (NSAID); Z79.891 Long term (current) use of opiate analgesic; Z79.899 Other long term (current) drug therapy; Z79.2 Long term (current) use of antibiotics
CPT/HCPCS: 36415; 74176; 80048; 80053; 81001; 83605; 85025; 85610; 86850; 86900; 86901; G0378; J1885; J2250; J2405

== ENCOUNTER 2024-06-10 06:25 | Emergency (ER) | payer SELFPAY ==
[~2024-06-10] VITALS: Ht 165.1 cm; Wt 76.1 kg
[~2024-06-10 06:25] MED LIST changes: -BACDST PO; -CEPH500T PO; +CIP500T PO; +CIPR500T4 PO; +FINA5TAB4 PO; +HYDR-4902 PO; +OXY5T PO; +PHEN-1044 PO
[2024-06-10 06:46] VITALS: BP 151/90; PULSE 77; RESP 15; TEMP 98.2; O2SAT 98
--- NOTE | 2024-06-10 07:01 | ED.PDOC ---
History of Present Illness HPI Comments A 49 YEAR OLD MALE PRESENTS TO THE ED WITH COMPLAINT OF PIKE CATHETER DISCOMFORT, TODAY. PATIENT REPORTS ONGOING TIGHTENING DISCOMFORT AROUND HIS PIKE CATHETER INSERTION SITE SINCE RECENT REPLACEMENT ON 05/27/24 (2 WEEKS AGO). HE REPORTS ON CATHETER NOT LEAKING, CURRENTLY, AND HAVING IT, ORIGINALLY, PLACED IN 03/19/24, DUE TO URINE RETENTION SECONDARY TO ENLARGED PROSTATE HISTORY. PATIENT REPORTS STILL BEING ON CIPRO ANTIBIOTIC AND FLOMAX, CURRENTLY. PATIENT DENIES FEVER, CHILLS, SHORTNESS OF BREATH, CHEST PAIN, ABDOMINAL PAIN, NAUSEA, VOMITING, HEADACHE, OR OTHER COMPLAINTS. NO OTHER SYMPTOMS OR MODIFYING FACTORS AT THIS TIME. Chief Complaint: Tube Replacement Time Seen by MD: 06:45 Primary Care Provider: none Reviewed Notes: Nurses Notes, Medications, Allergies Allergies: Coded Allergies: NO KNOWN ALLERGIES (Unverified , 03/19/24) Home Meds Active Scripts Hydrocodone-Acetaminophen (Hydrocodone Bitartrate/AC 5-325 mg) 1 Tab Tab, 1 TAB PO Q8HR for 4 Days, #12 TAB Prov:GURINDER FREEMAN STRAIGHTEDGE MACHINE OPERATOR HELPER 05/25/24 Ciprofloxacin Hydrochloride (Ciprofloxacin HCl) 500 Mg Tab, 500 MG PO BID for 7 Days, #14 TAB Prov:GURINDER FREEMAN STRAIGHTEDGE MACHINE OPERATOR HELPER 05/25/24 Tamsulosin Hcl (Flomax) 0.4 Mg Cap, 1 CAP PO DAILY, #90 CAP 3 Refills Prov:ARUN FR[place] MD 03/19/24 Reported Medications Hydrocodone-Acetaminophen (Hydrocodone Bitartrate/AC 5-325 mg) 1 Tab Tab, 1 TAB PO, TAB 05/22/24 Ciprofloxacin Hcl (Ciprofloxacin Hcl) 500 Mg Tab, 1 TAB PO BID, #14 TAB 05/22/24 Phenazopyridine HCl (Phenazopyridine Hydrochlo) 100 Mg Tab, 100 MG PO, TAB 05/22/24 Oxycodone Hcl (OXYCODONE HCL) 5 Mg Tb, 5 MG PO, TAB 05/22/24 Finasteride (Finasteride) 5 Mg Tab, 1 TAB PO DAILY, #30 TAB 11 Refills 05/22/24 Information Source: Patient Mode of Arrival: Ambulatory Severity: Mild Timing: Days Duration: Since onset Medication Refill: For: Other (FOLEYCATHETER ADJUSTMUNT ) Past Medical History Past Medical History (Other): BPH Surgical History: Denies all surgeries Family History Family History: Reviewed,noncontributory to illness, Unknown Social History Smoker: Non-Smoker Alcohol: Denies ETOH Use Drugs: Denies Drug Use Lives In: Home Constitutional: denies: chills, diaphoresis, fatigue, fever, malaise, sweats, weakness, others EENTM: denies: blurred vision, double vision, ear bleeding, ear discharge, ear drainage, ear pain, ear ringing, eye pain, eye redness, hearing loss, mouth pain, mouth swelling, nasal discharge, nose bleeding, nose congestion, nose pain, photophobia, tearing, throat pain, throat swelling, voice changes, others Respiratory: denies: cough, hemoptysis, orthopnea, SOB at rest, shortness of breath, SOB with excertion, stridor, wheezing, others Cardiovascular: denies: chest pain, dizzy spells, diaphoresis, Dyspnea on exertion, edema, irregular heart beat, left arm pain, lightheadedness, palpitations, PND, syncope, others Gastrointestinal: denies: abdomen distended, abdominal pain, blood streaked bowels, constipated, diarrhea, dysphagia, difficulty swallowing, hematemesis, melena, nausea, poor appetite, poor fluid intake, rectal bleeding, rectal pain, vomiting, others Genitourinary: reports: others (PIKE CATHETER ADJUSTMENT D/T DISCOMFORT); denies: burning, dysuria, flank pain, frequency, hematuria, incontinence, penile discharge, penile sore, pain, testicle pain, testicle swelling, urgency Neurological: denies: dizziness, fainting, headache, left sided numbness, left sided weakness, numbness, paresthesia, pre-existing deficit, right sided numbness, right sided weakness, seizure, speech problems, tingling, tremors, weakness, others Musculoskeletal: denies: back pain, gout, joint pain, joint swelling, muscle pain, muscle stiffness, neck pain, others Integumetry: denies: bruises, change in color, change in hair/nails, dryness, laceration, lesions, lumps, rash, wounds, others Allergic/Immunocompromised: denies: Difficulty Healing, Frequent Infections, Hives, Itching, others Hematologic/Lymphatic: denies: anemia, blood clots, easy bleeding, easy bruising, swollen glands, others Endocrine: denies: excessive hunger, excessive sweating, excessive thirst, excessive urination, flushing, intolerance to cold, intolerance to heat, unexp lained weight gain, unexplained weight loss, others Psychiatric: denies: anxiety, bipolar disorder, depression, hopeless, panic disorder, schizophrenia, sleepless, suicidal, others All Other Systems: Reviewed and Negative (COMPREHENSIVE REVIEW OF SYSTEMS ARE NEGATIVE UNLESS OTHERWISE STATED IN HPI) Physical Exam General Appearance: No Apparent Distress, Normal HEENT: Normal ENT Inspection, PERRL/EOMI, Pharynx Normal, TMs Normal Neck: Full Range of Motion, Non-Tender, Normal, Normal Inspection Respiratory: Chest Non-Tender, Lungs Clear, No Accessory Muscle Use, No Respiratory Distress, Normal Breath Sounds Cardiovascular: No Edema, No JVD, No Murmur, No Gallop, Normal Peripheral Pulses, Regular Rate/Rhythm Breast Exam: Deferred Gastrointestinal: No Organomegaly, Non Tender, No Pulsatile Mass, Normal Bowel Sounds, Soft Genitalia: Deferred Pelvic: Deferred Rectal: Deferred Extremities: No calf tenderness, Normal capillary refill, Normal inspection, Normal range of motion, Non-tender, No pedal edema Musculoskeletal : Apperance: Normal Neurologic: Alert, organic section technical lead II-XII nml as Tested, No Motor Deficits, Normal Affect, Normal Mood, No Sensory Deficits Cerebellar Function: Normal Reflexes: Normal Skin: Dry, Normal Color, Warm Peripheral Pulses: 2+ carotid (R), 2+ carotid (L) Lymphatic: No Adenopathy Was a procedure done? Was a procedure done?: No Differential Dx Considerations may include: PIKE CATHETER OBSTRUCTION, INAPPROPRIATE PIKE CATHETER SIZE, UTI, AMONG OTHERS X-Ray, Labs, Meds, VS Vital Signs Date Time Temp Pulse Resp B/P (MAP) Pulse Ox O2 Delivery O2 Flow Rate FiO2 06/10/24 06:46 98.2 77 15 151/90 (110) 98 98.2 06/10/24 06:46 77 15 98 Room Air 06/10/24 06:33 98.2 77 15 151/90 (110) 98 98.2 X-Ray, Labs, Meds, VS Comment COURSE: EXTERNAL MEDICAL RECORDS REVIEWED: [NONE] INDEPENDENT HISTORIANS: [NONE] SOCIAL DETERMINANTS OF HEALTH: [NONE] LABS ORDERED: NONE REVIEWED AND INTERPRETED RESULTS: NONE IMAGING ORDERED: NONE TREATMENTS ORDERED: YES PROCEDURES PERFORMED: ADJUSTED HIS PIKE CATHETER BALLOON FROM EXISTING BALLOON, 24ML OUTPUT, PLACED 10ML NS PATIENT IS ABLE TO PRODUCE URINE, DISCOMFORT RESOLVED, PATIENT STATES ON FEELING BETTER NOW CRITICAL CARE TIME: NONE I HAVE DISCUSSED THE PATIENT WITH THE ATTENDING PHYSICIAN DR. NAVARRETE AND HE AGREES WITH THE PATIENT'S PLAN OF CARE AND DISPOSITION. BASED ON HISTORY OF PRESENT ILLNESS, AND PHYSICAL EXAM, PATIENT WILL BE DISCHARGED HOME. DISCUSSED PLAN FOR DISCHARGE HOME. SHARED DECISION MAKING: DISCUSSED WITH PATIENT THAT THEIR WORKUP WAS NORMAL. PATIENT INSTRUCTED TO FOLLOW UP WITH PRIMARY CARE PROVIDER IN 1-2 DAYS FOR RE- EVALUATION OF SYMPTOMS. PATIENT VERBALIZES UNDERSTANDING TO RETURN TO ED FOR NEW OR WORSENING SYMPTOMS OR IF FOLLOW UP WITH PCP CANNOT BE OBTAINED. PATIENT FEELS COMFORTABLE GOING HOME AT THIS TIME. ALL QUESTIONS ADDRESSED AT TIME OF DISCHARGE. Time of 1ST Reevaluation: 07:16 Reevaluation 1ST: Improved Patient Education/Counseling: Diagnosis, Treatment, Need For Follow Up Family Education/Counseling: Diagnosis, Treatment, No Family Present Medical Screening: No EMC Exist At This Time Departure 1 Departure Time of Disposition: 07:16 Impression: Primary Impression: Encounter for evaluation of Pike catheter Additional Impression: Enlarged prostate Disposition: 01 HOME / SELF CARE / HOMELESS Condition: Stable Additional Instructions: INSTRUCTIONS: FOLLOW-UP WITH PCP IN 1 TO 2 DAYS. RETURN TO ED FOR ANY NEW OR WORSENING SYMPTOMS. Discharged With: Self Critical Care Note Critical Care Time?: No Stability Stability form required: No Heart Score Heart Score: Heart Score Response (Comments) Value History N/A 0 EKG N/A 0 Age N/A 0 Risk Factors N/A 0 Troponin N/A 0 Total 0 I personally scribed for ALBA MICHELLE ([email or web address]) on 06/10/24 at 07:01. Electronically submitted by Barry Rodriguez ([email or web address]). I personally scribed for ALBA MICHELLE ([email or web address]) on 06/10/24 at 07:15. Electronically submitted by Barry Rodriguez ([email or web address]). ALBA MICHELLE Jun 10, 2024 07:01
== END 2024-06-10 07:23 | disposition home or self-care (01) ==
LOC: ER 06:25
DX: N40.1 Benign prostatic hyperplasia with lower urinary tract symptoms (principal); R33.8 Other retention of urine; Z46.6 Encounter for fitting and adjustment of urinary device

== ENCOUNTER 2024-09-25 10:21 | Outpatient (CLI) | payer BC ==
[2024-09-25 11:51] LABS: Hematocrit 49.8 % (41.0-53.0); Hemoglobin 17.4 g/dL (13.5-17.5); Mean Corpuscular Hemoglobin 31.2 pg (28.0-32.0); Mean Corpuscular Volume 89.4 fL (80.0-100.0); Nucleated Red Blood Cells % 0.4 %
[2024-09-25 11:57] LABS: Urine Protein, UAD Negative (Negative)
[2024-09-25 12:13] LABS: Alanine Aminotransferase 41 U/L (7-40); Albumin 4.8 g/dL (3.2-4.8); Alkaline Phosphatase 111 U/L (46-116); Anion Gap 9 (5-15); BUN/Creatinine Ratio 13.2 (10.0-20.0); Bilirubin, Total 0.7 mg/dL (0.2-1.0); Blood Urea Nitrogen 12 mg/dL (9-23); Calcium 10.1 mg/dL (8.7-10.4); Carbon Dioxide 28 mmol/L (20-31); Chloride 104 mmol/L (98-107); Cholesterol 242 mg/dL (< 200); Glucose 95 mg/dL (74-106); HDL Cholesterol 54 mg/dL (40-59); Potassium 4.0 mmol/L (3.5-5.1); Sodium 141 mmol/L (136-145); Total Protein 7.8 g/dL (5.7-8.2); Triglycerides 145 mg/dL (< 150)
== END 2024-09-25 17:00 | disposition home or self-care (01) ==
LOC: LAB 10:21
PROVIDERS: ATTEND Internal Medicine
DX: Z01.812 Encounter for preprocedural laboratory examination (principal); N40.1 Benign prostatic hyperplasia with lower urinary tract symptoms
CPT/HCPCS: 36415; 80053; 80061; 81001; 84443; 85025

== ENCOUNTER 2024-10-22 07:27 | Inpatient (IN) | payer BC ==
[~2024-10-22] VITALS: Ht 165.1 cm; Wt 82.0 kg
--- NOTE | 2024-10-22 08:10 | ED.PDOC ---
General HPI Comments 49 y/o M, presents to the ED for CC of blood in urine. Patient relays, that he has been having hematuria sudden onset, yesterday (10/21/24). Patient states, that he had prostate surgery on 10/04/24. He had prostate artery embolization. Patient states that he noticed bleeding in his urinary catheter bag with clots starting at 1:00 a.m. this morning. History of hypertension. Denies use of blood thinners. Denies any other symptoms. Chief Complaint: Urinary Time Seen by MD: 08:05 Primary Care Provider: none Reviewed notes: Nurses Notes, Medications, Allergies Allergies: Coded Allergies: NO KNOWN ALLERGIES (Unverified , 03/19/24) Home Meds Active Scripts Hydrocodone-Acetaminophen (Hydrocodone Bitartrate/AC 5-325 mg) 1 Tab Tab, 1 TAB PO Q8HR for 4 Days, #12 TAB Prov:GURINDER FREEMAN LEARNING OPERATIONS SPECIALIST 05/25/24 Ciprofloxacin Hydrochloride (Ciprofloxacin HCl) 500 Mg Tab, 500 MG PO BID for 7 Days, #14 TAB Prov:GURINDER FREEMAN LEARNING OPERATIONS SPECIALIST 05/25/24 Tamsulosin Hcl (Flomax) 0.4 Mg Cap, 1 CAP PO DAILY, #90 CAP 3 Refills Prov:ARUN FRANCE MD 03/19/24 Reported Medications Hydrocodone-Acetaminophen (Hydrocodone Bitartrate/AC 5-325 mg) 1 Tab Tab, 1 TAB PO, TAB 05/22/24 Ciprofloxacin Hcl (Ciprofloxacin Hcl) 500 Mg Tab, 1 TAB PO BID, #14 TAB 05/22/24 Phenazopyridine HCl (Phenazopyridine Hydrochlo) 100 Mg Tab, 100 MG PO, TAB 05/22/24 Oxycodone Hcl (OXYCODONE HCL) 5 Mg Tb, 5 MG PO, TAB 05/22/24 Finasteride (Finasteride) 5 Mg Tab, 1 TAB PO DAILY, #30 TAB 11 Refills 05/22/24 Mode of Arrival: Ambulatory Severity: Moderate Timing: Hours Duration: Since onset Onset: Spontaneous Symptoms: Hematuria History of: Prostatitis, Chronic indwelling barry Penile discharge: None associated signs and symptoms: Hematuria Past Medical History PAST MEDICAL HISTORY: HTN Surgical History: Denies all surgeries Surgical History (Other): prostate Family History Family History: Reviewed,noncontributory to illness, Unknown Social History Smoker: Non-Smoker Alcohol: Denies ETOH Use Drugs: Denies Drug Use Lives In: Home Constitutional: denies: chills, diaphoresis, fatigue, fever, malaise, sweats, weakness, others EENTM: denies: blurred vision, double vision, ear bleeding, ear discharge, ear drainage, ear pain, ear ringing, eye pain, eye redness, hearing loss, mouth pain, mouth swelling, nasal discharge, nose bleeding, nose congestion, nose pain, photophobia, tearing, throat pain, throat swelling, voice changes, others Respiratory: denies: cough, hemoptysis, orthopnea, SOB at rest, shortness of breath, SOB with excertion, stridor, wheezing, others Cardiovascular: denies: chest pain, dizzy spells, diaphoresis, Dyspnea on exert ion, edema, irregular heart beat, left arm pain, lightheadedness, palpitations, PND, syncope, others Gastrointestinal: denies: abdomen distended, abdominal pain, blood streaked bowels, constipated, diarrhea, dysphagia, difficulty swallowing, hematemesis, melena, nausea, poor appetite, poor fluid intake, rectal bleeding, rectal pain, vomiting, others Genitourinary: reports: hematuria; denies: burning, dysuria, flank pain, frequency, incontinence, penile discharge, penile sore, pain, testicle pain, testicle swelling, urgency, others Neurological: denies: dizziness, fainting, headache, left sided numbness, left sided weakness, numbness, paresthesia, pre-existing deficit, right sided numbness, right sided weakness, seizure, speech problems, tingling, tremors, weakness, others Musculoskeletal: denies: back pain, gout, joint pain, joint swelling, muscle pain, muscle stiffness, neck pain, others Integumetry: denies: bruises, change in color, change in hair/nails, dryness, laceration, lesions, lumps, rash, wounds, others Allergic/Immunocompromised: denies: Difficulty Healing, Frequent Infections, Hives, Itching, others Hematologic/Lymphatic: denies: anemia, blood clots, easy bleeding, easy bruising, swollen glands, others Endocrine: denies: excessive hunger, excessive sweating, excessive thirst, excessive urination, flushing, intolerance to cold, intolerance to heat, unexplained weight gain, unexplained weight loss, others Psychiatric: denies: anxiety, bipolar disorder, depression, hopeless, panic disorder, schizophrenia, sleepless, suicidal, others All Other Systems: Reviewed and Negative Physical Exam General Appearance: Moderate Distress HEENT: Normal ENT Inspection, Pharynx Normal, TMs Normal Neck: Full Range of Motion, Non-Tender, Normal, Normal Inspection Respiratory: Chest Non-Tender, Lungs Clear, No Accessory Muscle Use, No Respiratory Distress, Normal Breath Sounds Cardiovascular: No Edema, No JVD, No Murmur, No Gallop, Normal Peripheral Pulses, Regular Rate/Rhythm Breast Exam: Deferred Gastrointestinal: No Organomegaly, Non Tender, No Pulsatile Mass, Normal Bowel Sounds, Soft Genitalia: Deferred Pelvic: Deferred Rectal: Deferred Extremities: No calf tenderness, Normal capillary refill, Normal inspection, Normal range of motion, Non-tender, No pedal edema Musculoskeletal : Apperance: Normal Neurologic: Alert, steno pool supervisor II-XII nml as Tested, No Motor Deficits, Normal Affect, Normal Mood, No Sensory Deficits Cerebellar Function: Normal Reflexes: Normal Skin: Dry, Normal Color, Warm Peripheral Pulses: 3+ Radial (R), 3+ Radial (L) Lymphatic: No Adenopathy Was a procedure done? Was a procedure done?: No Differential Diagnosis Kidney stone (Female): N/A Kidney stone (Male): Urinary obstruction, Urolithiasis, Urinary tract infection Urinary Problem (Female): N/A X-Ray, Labs, Meds, VS Vital Signs Date Time Temp Pulse Resp B/P (MAP) Pulse Ox O2 Delivery O2 Flow Rate FiO2 10/22/24 07:30 97.8 72 19 154/90 97 97.8 Patient alert. Complaining of blood in the urine. Vitals stable. Answering questions. Reviewed his previous visit. Establish intravenous access. Was given fluids. He we will need urology consultation. After flushing of the catheter he should be admitted to make sure there is no bleeding. Explained to the patient. Continue monitoring. Time of 1ST Reevaluation: 08:35 Reevaluation 1ST: Unchanged Patient Education/Counseling: Diagnosis, Treatment Family Education/Counseling: Diagnosis, Treatment SEPSIS Sepsis Screen Date sepsis recognized/suspect: Oct 22, 2024 Time Sepsis recognized/suspect: 729 Recent Procedure: No On Antibiotic Therapy: No Respiratory Rate >20: No Heart Rate >90: No Temp<36 C (96.8 F) or >38.3 C: No SBP <90 or MAP <65 mmHG: No New Acute Mental Status Change: No Is the patient on CPAP, BIPAP,: No Physician Orders Urinalysis (10/22/24 08:01) Vital Signs Date Time Temp Pulse Resp B/P (MAP) Pulse Ox O2 Delivery O2 Flow Rate FiO2 10/22/24 07:30 97.8 72 19 154/90 97 97.8 Departure 1 Departure Time of Disposition: 08:17 Impression: Primary Impression: Prostatitis, acute Additional Impression: Hematuria Qualified Codes: R31.9 - Hematuria, unspecified Disposition: ADMITTED INPATIENT Admit to: Med Surg Condition: Guarded Critical Care Note Critical Care Time?: Yes (90 min-critical care time only) Stability Stability form required: No Heart Score Heart Score: Heart Score Response (Comments) Value History N/A 0 EKG N/A 0 Age N/A 0 Risk Factors N/A 0 Troponin N/A 0 Total 0 I personally scribed for CANDACE NAVARRETE MD ([email or web address]) on 10/22/24 at 08:10. E lectronically submitted by Zuleyma Westfall ([email or web address]). CANDACE NAVARRETE MD Oct 22, 2024 08:10
[2024-10-22] MEDS ORDERED: TAMSULOSIN HYDROCHLORIDE 0.4 MG CAP PO ONE (13:00)
[2024-10-22] MEDS ORDERED: ONDANSETRON HCL 4 MG/2 ML VIAL IV PRN (13:00)
[2024-10-22 13:31] LABS: Hematocrit 44.9 % (41.0-53.0); Hemoglobin 15.7 g/dL (13.5-17.5); Mean Corpuscular Hemoglobin 31.0 pg (28.0-32.0); Mean Corpuscular Volume 88.6 fL (80.0-100.0); Nucleated Red Blood Cells % 0.0 %
[2024-10-22 13:43] VITALS: PULSE 60; RESP 18; O2SAT 98
[2024-10-22 13:50] LABS: Alkaline Phosphatase 111 U/L (46-116); Anion Gap 9 (5-15); BUN/Creatinine Ratio 11.7 (10.0-20.0); Blood Urea Nitrogen 11 mg/dL (9-23); Calcium 9.8 mg/dL (8.7-10.4); Carbon Dioxide 29 mmol/L (20-31); Chloride 103 mmol/L (98-107); Potassium 4.2 mmol/L (3.5-5.1); Sodium 141 mmol/L (136-145); Total Protein 8.0 g/dL (5.7-8.2)
[2024-10-22 13:51] LABS: Bilirubin, Total 0.5 mg/dL (0.2-1.0)
[2024-10-22] MEDS: SODIUM CHLORIDE 0.9% 1,000 ML IV SCH (13:59)
[2024-10-22 14:00] LABS: Alanine Aminotransferase 61 U/L (7-40); Albumin 5.1 g/dL (3.2-4.8); Glucose 115 mg/dL (74-106)
--- NOTE | 2024-10-22 14:03 | DVH ---
History: Hematurea Comparison: None Date: 10/22/2024 01:07 PM Technique: Grayscale and color Doppler ultrasound of the pelvis was obtained. Pre-and postvoid images of the bladder were obtained. Findings/Impression: No large intraluminal masses are seen in the bladder. Bladder volume measures 274 cc with debris present. Solorzano catheter is present within the urinary bladder.
[2024-10-22] MEDS: METOPROLOL TARTRATE 25 MG TAB PO ONE (14:04)
[2024-10-22] MEDS: FINASTERIDE 5 MG TAB PO ONE (14:05)
[2024-10-22] MEDS: ACETAMINOPHEN 325 MG TAB PO PRN (14:08)
[2024-10-22 14:12] VITALS: BP 143/95; PULSE 70; RESP 16; TEMP 98; O2SAT 95
[2024-10-22 14:15] VITALS: BP 143/95; PULSE 70; RESP 16; TEMP 98; O2SAT 95
--- NOTE | 2024-10-22 14:53 | DVHINCON2 ---
Date of service: Oct 22, 2024 Referring Physician Hospitalist Reason for Consultation gross hematuria History of Present Illness History Source: Patient, Family, RN Notes, MD Notes, Old Records Exam Limitations: No limitations HPI 49 yo male known to urology service for BPH. Pt had iTind procedure (05/17/24) followed by prostate artery embolization (10/04/24). He failed voiding trial Wednesday10/20/24 in office. Barry was replaced by me 18F coude without incident and hsi urine was yellow Wednesday when he left our office. He presented to the ER stating hematuria sudden onset today. Home Meds Active Scripts Tamsulosin Hcl (Flomax) 0.4 Mg Cap, 1 CAP PO DAILY, #90 CAP 3 Refills Prov:ARUN FRANCE MD 03/19/24 Reported Medications Phenazopyridine HCl (Phenazopyridine Hydrochlo) 100 Mg Tab, 100 MG PO, TAB 05/22/24 Finasteride (Finasteride) 5 Mg Tab, 1 TAB PO DAILY, #30 TAB 11 Refills 05/22/24 Past Medical History Renal/: UTI, Benign prostatic enlarg., Hematuria Patient Family History: Groin hernia G8 FATHER Prostate problems G8 FATHER Review of Systems Genitourinary: Hematuria H&P Exam Vital Signs Vital Signs Date Time Temp Pulse Resp B/P (MAP) Pulse Ox O2 Delivery O2 Flow Rate FiO2 10/22/24 14:15 98.0 70 16 143/95 (111) 95 98.0 10/22/24 09:27 Room Air* 0 21 General Appeara: Well developed, Well nourished, Normal Appearance Neuro/Mental St: Alert, Oriented Appearance: Appropriate appearance, Appropriate insight Eye contact/ Speech: Cooperative, Good eye contact, Normal speech Skin Exam: Normal inspection, Normal color, Warm/dry Labs/Xrays [address] [address] Ph: [phone] DIAGNOSTIC IMAGING Diagnostic Imaging Report : [id number] Signed PATIENT: VICTORIANO COPE ACCT: [id number] UNIT: [id number] : 1975 LOC: OVERFLOW ROOM / BED: [facility] [place]-ER / A AGE / SEX: 49 / M ADM STATUS: ADM IN SERVICE 1301 ORDERING PHYSICIAN: ROSIE POWELL PROCEDURE(s): BLDR - BLADDER REASON: Hematurea ORDER NUMBER(s): [id number], ACCESSION NUMBER(s): [id number] History: Hematurea Comparison: None Date: 10/22/2024 01:07 PM Technique: Grayscale and color Doppler ultrasound of the pelvis was obtained. Pre-and postvoid images of the bladder were obtained. Findings/Impression: No large intraluminal masses are seen in the bladder. Bladder volume measures 274 cc with debris present. Barry catheter is present within the urinary bladder. ATED BY: FRANCISCO JAVIER MERCADO MD DICTATED DATE/TIME: 10/22/241400 SIGNED BY: FRANCISCO JAVIER MERCADO MD SIGNED DATE/TIME: 10/22/24 140 CC: Labs Test 10/22/24 13:12 Range/Units White Blood Count 6.3 4.4-10.8 10^3/uL Red Blood Count 5.07 4.5-5.90 10^6/uL Hemoglobin 15.7 13.5-17.5 g/dL Hematocrit 44.9 41.0-53.0 % Mean Corpuscular Volume 88.6 80.0-100.0 fL Mean Corpuscular Hemoglobin 31.0 28.0-32.0 pg Mean Corpuscular Hemoglobin Concent 35.0 32.0-36.0 g/dL Red Cell Distribution Width 13.9 11.8-14.3 % Platelet Count 334 140-450 10^3/uL Mean Platelet Volume 7.6 6.9-10.8 fL Neutrophils (%) (Auto) 59.4 37.0-80.0 % Lymphocytes (%) (Auto) 29.3 10.0-50.0 % Monocytes (%) (Auto) 7.1 0.0-12.0 % Eosinophils (%) (Auto) 3.3 0.0-7.0 % Basophils (%) (Auto) 0.9 0.0-2.0 % Neutrophils # (Auto) 3.8 1.6-8.6 10 ^3/uL Lymphocytes # (Auto) 1.9 0.4-5.4 10 ^3/uL Monocytes # (Auto) 0.5 0-1.3 10 ^3/uL Eosinophils # (Auto) 0.2 0-0.8 10 ^3/uL Basophils # (Auto) 0.1 0-0.2 10 ^3/uL Nucleated Red Blood Cells 0.0 % Sodium Level 141 136-145 mmol/L Potassium Level 4.2 3.5-5.1 mmol/L Chloride Level 103 98-107 mmol/L Carbon Dioxide Level 29 20-31 mmol/L Anion Gap 9 5-15 Blood Urea Nitrogen 11 9-23 mg/dL Creatinine 0.94 0.700-1.30 mg/dL Glomerular Filtration Rate Calc 100 >90 mL/min BUN/Creatinine Ratio 11.7 10.0-20.0 Serum Glucose 115 H 74-106 mg/dL Calcium Level 9.8 8.7-10.4 mg/dL Total Bilirubin 0.5 0.2-1.0 mg/dL Aspartate Amino Transferase (AST) 41 H 13-40 U/L Alanine Aminotransferase (ALT) 61 H 7-40 U/L Alkaline Phosphatase 111 46-116 U/L Total Protein 8.0 5.7-8.2 g/dL Albumin 5.1 H 3.2-4.8 g/dL Assessment/Plan Problem List: (1) Hematuria Plan hydrate irrigate barry until clear and prn Plan discussed with: Patient, Other GRZEGORZ ALEJANDRE NP Oct 22, 2024 14:53
[2024-10-22] MEDS: TAMSULOSIN HYDROCHLORIDE 0.4 MG CAP PO SCH (18:12)
--- NOTE | 2024-10-22 18:42 | DVHHPRES ---
History of Present Illness Resident Creating Document: ROSIE POWELL RESDIENT History of Present Illness This is a 49-year-old male with past medical history of hypertension and BPH came to the hospital due to bloody urine. Patient had iTind procedure (05/17/24) followed by prostate artery embolization (10/04/24). He failed voiding trial Wednesday10/20/[address] Hernandez office. Since yesterday developed fresh blood per urine with blood clot which prompted this visit. Denies fever, abdominal pain, or any recent bowel habit changes. PMHx: BPH status post prostate artery embolization PSHx: iTind procedure (05/17/24) Family history: Nonsignificant Social history: Marijuana use Home medication: Finasteride, Flomax, and metoprolol Allergic history: No known allergy Patient seen and examined at bedside. Patient is still having fresh blood in urine. Review of Systems Allergies: Coded Allergies: NO KNOWN ALLERGIES (Unverified , 03/19/24) Medications Current Medications Medications Dose Ordered Sig/Holly Route Start Time Stop Time Status Last Admin Dose Admin Acetaminophen 650 mg Q6HP PRN PO 10/22/24 13:00 10/22/24 14:08 650 MG Ondansetron HCl 4 mg Q4HP PRN IV 10/22/24 13:00 Sodium Chloride 1,000 ml @ 150 mls/hr Q6H40M IV 10/22/24 13:00 10/22/24 13:59 150 MLS/HR Tamsulosin HCl 0.4 mg QPM PO 10/22/24 18:00 10/22/24 18:12 0.4 MG Finasteride 5 mg DAILY PO 10/23/24 10:00 Metoprolol Tartrate 12.5 mg BID PO 10/22/24 22:00 Exam Vital Signs Vital Signs Date Time Temp Pulse Resp B/P (MAP) Pulse Ox O2 Delivery O2 Flow Rate FiO2 10/22/24 14:15 98.0 70 16 143/95 (111) 95 98.0 10/22/24 13:43 Room Air* 0 21 Exam General Appearance: Alert, Oriented X3, Cooperative, No acute distress HEENT: Atraumatic, PERRLA, EOMI, Mucous membrane moist/pink Respiratory: Clear to auscultation, Normal air movement Cardiovascular: Regular rate, Normal S1, Normal S2, No murmurs, no chest wall tenderness Abdominal: Normal bowel sounds, Soft, No tenderness, No hepatospenomegaly, No masses Extremities: No clubbing, No cyanosis, No edema, Normal pulses, No tenderness/swelling Skin: No rashes, No breakdown, No significant lesion Neuro: Normal gait, Normal speech, Strength at 5/5 X4 ext, Normal tone, Sensation intact, Cranial nerves 3-12 NL, Reflexes 2+ Psych/Mental Status: Mental status NL, Mood NL Labs/Xrays Labs Test 10/22/24 13:12 Range/Units White Blood Count 6.3 4.4-10.8 10^3/uL Red Blood Count 5.07 4.5-5.90 10^6/uL Hemoglobin 15.7 13.5-17.5 g/dL Hematocrit 44.9 41.0-53.0 % Mean Corpuscular Volume 88.6 80.0-100.0 fL Mean Corpuscular Hemoglobin 31.0 28.0-32.0 pg Mean Corpuscular Hemoglobin Concent 35.0 32.0-36.0 g/dL Red Cell Distribution Width 13.9 11.8-14.3 % Platelet Count 334 140-450 10^3/uL Mean Platelet Volume 7.6 6.9-10.8 fL Neutrophils (%) (Auto) 59.4 37.0-80.0 % Lymphocytes (%) (Auto) 29.3 10.0-50.0 % Monocytes (%) (Auto) 7.1 0.0-12.0 % Eosinophils (%) (Auto) 3.3 0.0-7.0 % Basophils (%) (Auto) 0.9 0.0-2.0 % Neutrophils # (Auto) 3.8 1.6-8.6 10 ^3/uL Lymphocytes # (Auto) 1.9 0.4-5.4 10 ^3/uL Monocytes # (Auto) 0.5 0-1.3 10 ^3/uL Eosinophils # (Auto) 0.2 0-0.8 10 ^3/uL Basophils # (Auto) 0.1 0-0.2 10 ^3/uL Nucleated Red Blood Cells 0.0 % Sodium Level 141 136-145 mmol/L Potassium Level 4.2 3.5-5.1 mmol/L Chloride Level 103 98-107 mmol/L Carbon Dioxide Level 29 20-31 mmol/L Anion Gap 9 5-15 Blood Urea Nitrogen 11 9-23 mg/dL Creatinine 0.94 0.700-1.30 mg/dL Glomerular Filtration Rate Calc 100 >90 mL/min BUN/Creatinine Ratio 11.7 10.0-20.0 Serum Glucose 115 H 74-106 mg/dL Calcium Level 9.8 8.7-10.4 mg/dL Total Bilirubin 0.5 0.2-1.0 mg/dL Aspartate Amino Transferase (AST) 41 H 13-40 U/L Alanine Aminotransferase (ALT) 61 H 7-40 U/L Alkaline Phosphatase 111 46-116 U/L Total Protein 8.0 5.7-8.2 g/dL Albumin 5.1 H 3.2-4.8 g/dL SEPSIS Sepsis Screen Date sepsis recognized/suspect: Oct 22, 2024 Time Sepsis recognized/suspect: 729 Recent Procedure: No On Antibiotic Therapy: No Respiratory Rate >20: No Heart Rate >90: No Temp<36 C (96.8 F) or >38.3 C: No SBP <90 or MAP <65 mmHG: No New Acute Mental Status Change: No Is the patient on CPAP, BIPAP,: No Physician Orders Admit (10/22/24 12:56) Code Status (10/22/24 12:56) Vital Signs .PER UNIT PROTOCOL (10/22/24 12:56) Review Orders With Adm.Md (10/22/24 12:56) Regular Diet (10/22/24 Lunch) Acetaminophen Tablet (Tylenol Tablet) (10/22/24 13:00) Notify Md Of Changes From Base (10/22/24 12:56) Advance Directive (10/22/24 12:56) Urinalysis (10/22/24 12:56) Patient Condition (10/22/24 12:56) Allergies (10/22/24 12:56) Ondansetron Hcl (Zofran) (10/22/24 13:00) Drug Screen (10/22/24 12:56) Stat Ekg For Chest Pain (10/22/24 12:56) Notify Md Of Changes From Base (10/22/24 12:56) Hi Prothrombin W Inr In Clinic (10/22/24 12:56) Complete Blood Count (10/23/24 04:00) Comprehensive Metabolic Panel (10/23/24 04:00) Sodium Chloride 0.9% (10/22/24 13:00) Tamsulosin Hydrochloride (Flomax) (10/22/24 18:00) Finasteride Tablet (Proscar Tablet) (10/23/24 10:00) Metoprolol Tartrate Tablet (Lopressor Ta (10/22/24 22:00) * Urology Consult (10/22/24 12:56) Bladder (10/22/24 13:01) Hand Irrigation With Ns Prn (10/22/24 14:47) Vital Signs Date Time Temp Pulse Resp B/P (MAP) Pulse Ox O2 Delivery O2 Flow Rate FiO2 10/22/24 14:15 98.0 70 16 143/95 (111) 95 98.0 10/22/24 14:12 98.0 70 16 143/95 (111) 95 98.0 10/22/24 14:04 70 143/95 10/22/24 13:43 60 18 98 Room Air* 0 21 Laboratory Tests Test 10/22/24 13:12 White Blood Count 6.3 10^3/uL (4.4-10.8) Medications Medications Dose Ordered Sig/Holly Route Start Time Stop Time Status Last Admin Dose Admin Acetaminophen 650 mg Q6HP PRN PO 10/22/24 13:00 10/22/24 14:08 650 MG Finasteride 5 mg ONCE ONCE PO 10/22/24 13:00 10/22/24 13:16 DC 10/22/24 14:05 5 MG Metoprolol Tartrate 12.5 mg ONCE ONCE PO 10/22/24 13:00 10/22/24 13:16 DC 10/22/24 14:04 12.5 MG Sodium Chloride 1,000 ml @ 150 mls/hr Q6H40M IV 10/22/24 13:00 10/22/24 13:59 150 MLS/HR Tamsulosin HCl 0.4 mg QPM PO 10/22/24 18:00 10/22/24 18:12 0.4 MG Assessment/Plan Assessment/Plan Gross hematuria, 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 Case discussed with Dr. Arguello. Plan discussed with: Patient, Other (RN) My Orders Orders - ROSIE POWELL RESDIJAMAR Procedure Category Date Status Time Admit ADMIT 10/22/24 Transmitted 12:56 Code Status CODE 10/22/24 Transmitted 12:56 Vital Signs [facility] 10/22/24 In Process 12:56 Review Orders With JANET 10/22/24 In Process Adm.Md 12:56 Regular Diet DIET 10/22/24 Transmitted Lunch Acetaminophen Tablet [facility] 10/22/24 In Process (Tylenol Tablet) 13:00 Notify Of Changes [facility] 10/22/24 In Process From Base 12:56 Advance Directive [facility] 10/22/24 In Process 12:56 Urinalysis LAB 10/22/24 Logged 12:56 Patient Condition ORDERS 10/22/24 Transmitted 12:56 Allergies [facility] 10/22/24 In Process 12:56 Ondansetron Hcl PHA 10/22/24 In Process (Zofran) 13:00 Drug Screen LAB 10/22/24 Logged 12:56 Stat Ekg For Chest [facility] 10/22/24 In Process Pain 12:56 Notify Of Changes [facility] 10/22/24 In Process From Base 12:56 Hi Prothrombin W Inr HDVI 10/22/24 Transmitted In Clinic 12:56 Complete Blood Count LAB 10/23/24 Verified 04:00 Comprehensive LAB 10/23/24 Verified Metabolic Panel 04:00 Sodium Chloride 0.9% PHA 10/22/24 In Process 13:00 Tamsulosin PHA 10/22/24 In Process Hydrochloride (Flomax) 18:00 Finasteride Tablet PHA 10/23/24 In Process (Proscar Tablet) 10:00 Metoprolol Tartrate PHA 10/22/24 In Process Tablet (Lopressor Ta 22:00 * Urology Consult CONS 10/22/24 Transmitted 12:56 Bladder US 10/22/24 Resulted 13:01 Date of Service: Oct 22, 2024 Billing Provider: ERICH RAJPUT MD Common Visit Codes: 39494-BEQRRTT INP/OBS CARE (HIGH) Secondary Visit Codes: 58510-NIIYAVLM CARE PLAN 30 MINUTES HEWADMALROSIE Oct 22, 2024 18:42 ERICH RAJPUT MD Oct 23, 2024 01:09
[2024-10-22 20:27] VITALS: BP 143/79; PULSE 70; RESP 18; TEMP 98.2; O2SAT 94
[2024-10-22 21:32] LABS: Urine Protein, UAD TRACE (Negative)
[2024-10-22 21:36] LABS: Amphetamine Screen, Urine Neg (NEGATIVE); Barbiturate Scree,Urine Neg (NEGATIVE); Benzodiazephine Screen, Urine Neg (NEGATIVE); Cannabinoid Screen, Urine Neg (NEGATIVE); Cocaine Screen, Urine Neg (NEGATIVE); Opiate Scree,Urine Neg (NEGATIVE); Phencyclidine Screen, Urine Neg (NEGATIVE)
[2024-10-22] MEDS: METOPROLOL TARTRATE 25 MG TAB PO SCH (22:15)
[2024-10-22 23:12] VITALS: BP 163/82; PULSE 67; RESP 25; O2SAT 96
[2024-10-23] VITALS (8 sets, daily range): BP systolic 124–147; BP diastolic 70–92; PULSE 57–68; RESP 12–22; TEMP 97.8–98.5; O2SAT 94–97
[2024-10-23 05:58] LABS: Hematocrit 39.2 % (41.0-53.0); Hemoglobin 13.8 g/dL (13.5-17.5); Mean Corpuscular Hemoglobin 31.0 pg (28.0-32.0); Mean Corpuscular Volume 88.2 fL (80.0-100.0); Nucleated Red Blood Cells % 0.0 %
[2024-10-23 06:33] LABS: Alanine Aminotransferase 57 U/L (7-40); Albumin 3.9 g/dL (3.2-4.8); Alkaline Phosphatase 94 U/L (46-116); Anion Gap 8 (5-15); BUN/Creatinine Ratio 10.7 (10.0-20.0); Blood Urea Nitrogen 9 mg/dL (9-23); Calcium 8.4 mg/dL (8.7-10.4); Carbon Dioxide 27 mmol/L (20-31); Chloride 107 mmol/L (98-107); Glucose 104 mg/dL (74-106); Potassium 4.1 mmol/L (3.5-5.1); Sodium 142 mmol/L (136-145); Total Protein 6.2 g/dL (5.7-8.2)
[2024-10-23 06:34] LABS: Bilirubin, Total 0.3 mg/dL (0.2-1.0)
[2024-10-23] MEDS: FINASTERIDE 5 MG TAB PO SCH (09:44)
[2024-10-23] MEDS ORDERED: POLYETHYLENE GLYCOL 17 GM PWDR PO PRN (12:00)
--- NOTE | 2024-10-23 12:35 | DVHPN2 ---
Progress Note - Dictate Date Seen: Oct 23, 2024 Medical Necessity Reason Pt with a Central, PICC or Fol: Yes The following are medically ne: Barry Catheter Reason for barry catheter: Bladder Retention/Obstruc Subjective feeling well vital signs Vital Sign Date Time Temp Pulse Resp B/P (MAP) Pulse Ox O2 Delivery O2 Flow Rate FiO2 10/23/24 09:45 80 149/62 10/23/24 09:22 97.9 16 97 97.9 10/23/24 08:00 Room Air* 0 21 Total Intake and Output 10/22/24 10/22/24 10/23/24 15:00 23:00 07:00 Intake Total 851 ml Output Total 500 ml Balance 351 ml medications Current Medications Medications Dose Ordered Sig/Holly Route Start Time Stop Time Status Last Admin Dose Admin Acetaminophen 650 mg Q6HP PRN PO 10/22/24 13:00 10/22/24 14:08 650 MG Ondansetron HCl 4 mg Q4HP PRN IV 10/22/24 13:00 Sodium Chloride 1,000 ml @ 150 mls/hr Q6H40M IV 10/22/24 13:00 10/23/24 03:08 150 MLS/HR Tamsulosin HCl 0.4 mg QPM PO 10/22/24 18:00 10/22/24 18:12 0.4 MG Finasteride 5 mg DAILY PO 10/23/24 10:00 10/23/24 09:44 5 MG Metoprolol Tartrate 12.5 mg BID PO 10/22/24 22:00 10/23/24 09:45 12.5 MG Polyethylene Glycol 17 gm DAILYPRN PRN PO 10/23/24 12:00 UNV objective urine clear laboratory and microbiology Laboratory Tests 10/23/24 05:39 Test 10/23/24 05:39 Range/Units Serum Glucose 104 74-106 mg/dL Assessment/Plan cleared from urology standpoint outpt f/u as scheduled Problems(with codes): (1) Hematuria (2) Enlarged prostate Prognosis good Plan discussed with: Patient, Other Total Time (mins): 24 GRZEGORZ ALEJANDRE NP Oct 23, 2024 12:35
--- NOTE | 2024-10-23 17:11 | DVHPNRES ---
Progress Note Date Seen: Oct 23, 2024 Resident Creating Document: ROSIE POWELL RESDIENT Medical Necessity Reason Pt with a Central, PICC or Fol: Yes The following are medically ne: Barry Catheter Reason for barry catheter: Bladder Retention/Obstruc Subjective Review of Systems Seen and examined at the bedside. Patient is feeling better since admission. Still urine has blood content. Objective vital signs Vital Sign Date Time Temp Pulse Resp B/P (MAP) Pulse Ox O2 Delivery O2 Flow Rate FiO2 10/23/24 17:04 97.8 66 16 135/85 (102) 97 97.8 10/23/24 08:00 Room Air* 0 21 Total Intake and Output 10/22/24 10/22/24 10/23/24 15:00 23:00 07:00 Intake Total 851 ml Output Total 500 ml Balance 351 ml medications Current Medications Medications Dose Ordered Sig/Holly Route Start Time Stop Time Status Last Admin Dose Admin Acetaminophen 650 mg Q6HP PRN PO 10/22/24 13:00 10/22/24 14:08 650 MG Ondansetron HCl 4 mg Q4HP PRN IV 10/22/24 13:00 Sodium Chloride 1,000 ml @ 150 mls/hr Q6H40M IV 10/22/24 13:00 10/23/24 03:08 150 MLS/HR Tamsulosin HCl 0.4 mg QPM PO 10/22/24 18:00 10/22/24 18:12 0.4 MG Finasteride 5 mg DAILY PO 10/23/24 10:00 10/23/24 09:44 5 MG Metoprolol Tartrate 12.5 mg BID PO 10/22/24 22:00 10/23/24 09:45 12.5 MG Polyethylene Glycol 17 gm DAILYPRN PRN PO 10/23/24 12:00 laboratory and microbiology Laboratory Tests 10/23/24 05:39 Test 10/23/24 05:39 Range/Units Serum Glucose 104 74-106 mg/dL Labs and/or images reviewed: Labs reviewed by me, Image(s) reviewed by me Problem List/Assessment/Plan Problem List/Assessment/Plan Gross hematuria, 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 Case discussed with Dr. Arguello. Plan discussed with: Patient, Other (RN) My Orders My Orders Orders - ROSIE POWELL Procedure Category Date Status Time Communication Order ORDERS 10/22/24 Transmitted 18:40 Polyethylene Glycol PHA 10/23/24 In Process 17g Powder (Miralax 12:00 Date of Service: Oct 23, 2024 Billing Provider: TOMI MORRISON MD Common Visit Codes: 66699-[id number] INP/OBS CARE(HIGH) ROSIE POWELL RESDIJAMAR Oct 23, 2024 17:10 TOMI MORRISON MD Oct 25, 2024 23:00
[2024-10-24 01:00] VITALS: BP 141/82; PULSE 65; RESP 15; TEMP 97.9; O2SAT 97
[2024-10-24 05:00] VITALS: BP 141/89; PULSE 60; RESP 16; TEMP 98; O2SAT 98
[2024-10-24 07:50] LABS: Albumin 3.9 g/dL (3.2-4.8); Alkaline Phosphatase 86 U/L (46-116); Anion Gap 8 (5-15); BUN/Creatinine Ratio 10.3 (10.0-20.0); Bilirubin, Total 0.6 mg/dL (0.2-1.0); Calcium 8.7 mg/dL (8.7-10.4); Carbon Dioxide 27 mmol/L (20-31); Chloride 106 mmol/L (98-107); Glucose 84 mg/dL (74-106); Potassium 3.7 mmol/L (3.5-5.1); Sodium 141 mmol/L (136-145); Total Protein 6.3 g/dL (5.7-8.2)
[2024-10-24 08:00] LABS: Hematocrit 39.4 % (41.0-53.0); Hemoglobin 13.9 g/dL (13.5-17.5); Mean Corpuscular Hemoglobin 30.9 pg (28.0-32.0); Mean Corpuscular Volume 87.7 fL (80.0-100.0); Nucleated Red Blood Cells % 0.0 %
[2024-10-24 08:09] LABS: Alanine Aminotransferase 57 U/L (7-40); Blood Urea Nitrogen 8 mg/dL (9-23)
[2024-10-24 09:00] VITALS: BP 150/95; PULSE 60; RESP 17; TEMP 97.8; O2SAT 97
[2024-10-24 11:44] VITALS: BP 122/78; PULSE 60; RESP 17; TEMP 97.8; O2SAT 97
--- NOTE | 2024-10-24 19:01 | DVHDSRES ---
Discharge Summary Date of Admission Resident Creating Document: ROSIE POWELL RESDIENT Oct 22, 2024 at 12:56 Date of Discharge: Oct 24, 2024 Labs/Diagnostic Data: Laboratory Results Test 10/24/24 06:35 10/22/24 20:18 White Blood Count 6.0 10^3/uL (4.4-10.8) Red Blood Count 4.49 10^6/uL (4.5-5.90) Hemoglobin 13.9 g/dL (13.5-17.5) Hematocrit 39.4 % (41.0-53.0) Mean Corpuscular Volume 87.7 fL (80.0-100.0) Mean Corpuscular Hemoglobin 30.9 pg (28.0-32.0) Mean Corpuscular Hemoglobin Concent 35.3 g/dL (32.0-36.0) Red Cell Distribution Width 13.5 % (11.8-14.3) Platelet Count 289 10^3/uL (140-450) Mean Platelet Volume 7.9 fL (6.9-10.8) Neutrophils (%) (Auto) 47.9 % (37.0-80.0) Lymphocytes (%) (Auto) 36.8 % (10.0-50.0) Monocytes (%) (Auto) 7.2 % (0.0-12.0) Eosinophils (%) (Auto) 7.2 % (0.0-7.0) Basophils (%) (Auto) 0.9 % (0.0-2.0) Neutrophils # (Auto) 2.9 10 ^3/uL (1.6-8.6) Lymphocytes # (Auto) 2.2 10 ^3/uL (0.4-5.4) Monocytes # (Auto) 0.4 10 ^3/uL (0-1.3) Eosinophils # (Auto) 0.4 10 ^3/uL (0-0.8) Basophils # (Auto) 0.1 10 ^3/uL (0-0.2) Nucleated Red Blood Cells 0.0 % Sodium Level 141 mmol/L (136-145) Potassium Level 3.7 mmol/L (3.5-5.1) Chloride Level 106 mmol/L (98-107) Carbon Dioxide Level 27 mmol/L (20-31) Anion Gap 8 (5-15) Blood Urea Nitrogen 8 mg/dL (9-23) Creatinine 0.78 mg/dL (0.700-1.30) Glomerular Filtration Rate Calc 110 mL/min (>90) BUN/Creatinine Ratio 10.3 (10.0-20.0) Serum Glucose 84 mg/dL (74-106) Calcium Level 8.7 mg/dL (8.7-10.4) Total Bilirubin 0.6 mg/dL (0.2-1.0) Aspartate Amino Transferase (AST) 34 U/L (13-40) Alanine Aminotransferase (ALT) 57 U/L (7-40) Alkaline Phosphatase 86 U/L (46-116) Total Protein 6.3 g/dL (5.7-8.2) Albumin 3.9 g/dL (3.2-4.8) Urine Color Colorless (Yellow) Urine Clarity Clear (Clear) Urine pH 6.0 (5.0-9.0) Urine Specific [place] 1.014 (1.001-1.035) Urine Protein Trace (Negative) Urine Ketones Negative (Negative) Urine Blood 3+ /uL (Negative) Urine Nitrite Negative (Negative) Urine Bilirubin Negative (Negative) Urine Urobilinogen Normal mg/dL (Negative) Urine Leukocyte Esterase 3+ /uL (Negative) Urine RBC 32 /hpf (0 - 3) Urine Microscopic WBC 18 /HPF (0-3) Urine Squamous Epithelial Cells Few /hpf (<5) Urine Bacteria None seen /hpf (None Seen) Urine Mucus Few (None Seen) Urine Glucose Normal mg/dL (Normal) Urine Opiates Screen Neg (NEGATIVE) Urine Fentanyl Screen Neg (NEGATIVE) Urine Barbiturates Screen Neg (NEGATIVE) Urine Phencyclidine Screen Neg (NEGATIVE) Urine Amphetamines Screen Neg (NEGATIVE) Urine Benzodiazepines Screen Neg (NEGATIVE) Urine Cocaine Screen Neg (NEGATIVE) Urine Cannabinoids Screen Neg (NEGATIVE) Other Laboratory Tests 10/24/24 06:35 Brief Hx & Hospital Course: HISTORY OF PRESENT ILLNESS: This is a 49-year-old male with past medical history of hypertension and BPH came to the hospital due to bloody urine. Patient had iTind procedure (05/17/24) followed by prostate artery embolization (10/04/24). He failed voiding trial Wednesday10/20/[address] Hernandez office. Since yesterday developed fresh blood per urine with blood clot which prompted this visit. Denies fever, abdominal pain, or any recent bowel habit changes. PMHx: BPH status post prostate artery embolization PSHx: iTind procedure (05/17/24) Family history: Nonsignificant Social history: Marijuana use Home medication: Finasteride, Flomax, and metoprolol Allergic history: No known allergy HOSPITAL COURSE: Patient was admitted on the line of lydia hematuria and inability to pass urine (urinary retention). Ultrasound, showed, Bladder volume measures 274 cc with debris present. Urology was consulted, recommended urine bladder irrigation. Irrigation was performed and drained blood clot and blood. Due to continuous lydia blood in urine, bladder irrigation was continued for 2 days. During hospital admission, home medication including Flomax and finasteride was continued. On 10/24/2024, the patient was feeling better, urine became clear, discharge plan discussed with the patient and the patient discharged home. DISCHARGE PLAN: Follow up with the PCP within 1 week of the discharge. Follow up with the Urology on outpatient basis. 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 Follow up with the Urology on outpatient basis. Medications: Continue home meds Scheduled Finasteride (Finasteride), 1 TAB PO DAILY, (Reported) Tamsulosin Hcl (Flomax), 1 CAP PO DAILY Miscellaneous Medications Phenazopyridine HCl (Phenazopyridine Hydrochlo), 100 MG PO, (Reported) Discharge Statement: "Patient was advised to return to the ER or call 911 if any headaches, dizziness, shortness of breath, chest pain, abdominal pain, bleeding, fevers, or worsening of medical condition. Patient was counseled about treatment plan, medications, possible side effects, patientverbalized understanding. All questions were answered to the best of my ability. This discharge took greater then 30 minutes in planning, reviewing documentation, counseling the patient, and discussing with other team members." ASSESSMENT ASSESSMENT Assessment Hematuria Date of Service: Oct 24, 2024 Billing Provider: TOMI MORRISON MD Common Visit Codes: 52148-WPU/OBS DISCH DAY >30min ROSIE POWELL Oct 24, 2024 19:01 TOMI MORRISON MD Oct 25, 2024 23:13
== END 2024-10-24 12:31 | disposition home or self-care (01) | DRG 726 ==
LOC: ER 07:27 → OVERFLOW 12:56 → WEST WING 10-23 15:45
PROVIDERS: ADMIT Student in an Organized Health Care Education/Training Program; ATTEND Student in an Organized Health Care Education/Training Program
DX: N40.0 Benign prostatic hyperplasia without lower urinary tract symptoms (principal); R31.0 Gross hematuria; I10 Essential (primary) hypertension; N41.0 Acute prostatitis; Z79.899 Other long term (current) drug therapy; Z79.2 Long term (current) use of antibiotics
CPT/HCPCS: 36415; 76857; 80053; 80307; 81001; 85025; 99291; 99292; G0378